=== PATIENT | male | born 1990 | race Caucasian/White ===

== ENCOUNTER 2019-03-13 21:13 | Emergency (ER) | payer BC ==
[2019-03-13] MEDS ORDERED: Pantoprazole IV* 40 MG IV ONE (21:28)
[2019-03-13] MEDS ORDERED: Lidocaine 2% VISCOUS* 15 ML UDC PO ONE (21:29)
[2019-03-13] MEDS ORDERED: Al Hydrox/Mg Hydrox/Simet LIQ* 30 ML UDC PO ONE (21:29)
[2019-03-13] MEDS ORDERED: NS 0.9% 1000 ML** 1,000 ML IV ONE (21:29)
[2019-03-13] MEDS ORDERED: Ondansetron INJ* 2 MG/ML VIAL IV ONE (21:33)
--- NOTE | 2019-03-13 21:33 | ED ---
HPI Chest Pain - HPI Summary HPI Summary: 28-year-old male presents with chest pain for the past week. He states he gets this pain when he eats. He states that is a sharp pain in the center of his chest. He denies any shortness of breath. food and water makes the pain worst. has been taking pepcid and omeprazole with no relief. He admits to nausea but no vomiting. No blood in his stool or dark tarry stool. Has history diabetes. Has no family history of cardiac disease. Denies any headaches or dizziness. Denies any cough. has a history of hiatal hernia. - History of Current Complaint Chief Complaint: EDChestWallPain Time Seen by Provider: 03/13/19 21:22 Pain Intensity: 8 - Allergy/Home Medications Allergies/Adverse Reactions: Allergies Allergy/AdvReac Type Severity Reaction Status Date / Time acetaminophen [From Vicodin] Allergy Severe Anaphylatic Verified 02/28/19 13:26 Shock hydrocodone [From Vicodin] Allergy Severe Anaphylatic Verified 02/28/19 13:26 Shock hydromorphone [From Dilaudid] Allergy Severe Anaphylatic Verified 02/28/19 13:17 Shock ketorolac [From Toradol] Allergy Severe Anaphylatic Verified 02/28/19 13:17 Shock Penicillins Allergy Severe Anaphylatic Verified 02/28/19 13:16 Shock ziprasidone [From Geodon] Allergy Severe Anaphylatic Verified 02/28/19 13:28 Shock PMH/Surg Hx/FS Hx/Imm Hx Endocrine/Hematology History: Reports: Hx Diabetes Cardiovascular History: Denies: Hx Hypertension History: Denies: Hx Renal Disease - Surgical History Surgery Procedure, Year, and Place: several ear surgeries. lumbar laminectomy Infectious Disease History: No Infectious Disease History: Denies: Traveled Outside the [place] in Last 30 Days - Family History Known Family History: Negative: Cardiac Disease - Social History Alcohol Use: Daily Substance Use Type: Reports: Cocaine Review of Systems Negative: Fever Positive: Chest Pain Negative: Shortness Of Breath, Cough All Other Systems Reviewed And Are Negative: Yes Physical Exam Triage Information Reviewed: Yes Vital Signs On Initial Exam: Initial Vitals Temp Pulse Resp BP Pulse Ox 98.0 F 108 18 134/98 98 03/13/19 21:16 03/13/19 21:16 03/13/19 21:16 03/13/19 21:16 03/13/19 21:16 Vital Signs Reviewed: Yes Appearance: Positive: Well-Appearing Skin: Positive: Warm, Dry Head/Face: Positive: Normal Head/Face Inspection Eyes: Positive: Normal, Conjunctiva Clear ENT: Positive: Pharynx normal Respiratory/Lung Sounds: Positive: Clear to Auscultation, Breath Sounds Present , Other - reproducible chest pain Cardiovascular: Positive: Normal, RRR Abdomen Description: Positive: Nontender, Soft Bowel Sounds: Positive: Present Musculoskeletal: Positive: Normal Neurological: Positive: Normal Psychiatric: Positive: Normal Diagnostics - Vital Signs Vital Signs Temp Pulse Resp BP Pulse Ox 03/13/19 21:16 98.0 F 108 18 134/98 98 - Laboratory Result Diagrams: 03/13/19 21:39 03/13/19 21:39 Lab Statement: Any lab studies that have been ordered have been reviewed, and results considered in the medical decision making process. - Radiology chest Radiology Interpretation Completed By: ED Physician Summary of Radiographic Findings: no active disease - EKG No standard instances Cardiac Rate: NL EKG Rhythm: Sinus Rhythm Summary of EKG Findings: sinus rhythm Re-Evaluation - Re-Evaluation First Eval Re-Evaluation Time: 22:15 Change: Unchanged Comment: gi cocktail did not help Second Eval Re-Evaluation Time: 23:49 Change: Unchanged Comment: states mostly epigastric pain now, feels like stomach is pushin up into chest Third Eval Re-Evaluation Time: 01:23 Comment: discussed results will treat as gastritis Chest Pain Course/Dx - Course Course Of Treatment: 28-year-old male presents with chest pain for the past week. He states he gets this pain when he eats. He states that is a sharp pain in the center of his chest. He denies any shortness of breath. food and water makes the pain worst. has been taking pepcid and omeprazole with no relief. He admits to nausea but no vomiting. No blood in his stool or dark tarry stool. Has history diabetes. Has no family history of cardiac disease. Denies any headaches or dizziness. Denies any cough. On exam has reproducible chest pain in center of chest. Lungs auscultation. Heart regular rhythm. EKG shows sinus rhythm. D-dimer negative. CRP slightly elevated. electrolytes normal. Troponin 0. Gave GI cocktail and Protonix with no improvement. Patient is allergic to most medications beside aspirin. Gave aspirin with no improvement. amylase and lipase normal. suspect has GERD and hiatal hernia contribution to pain. will add on sucralfate and maalox for symptoms. will give referral to GI. patient understand and agrees with plan. - Chest Pain Differential Diagnosis/HQI/PQRI: Angina, Chest Wall, GI Disease, Pulmonary Embolism - Diagnoses Provider Diagnoses: Atypical chest pain, Epigastric pain Discharge - Sign-Out/Discharge Documenting (check all that apply): Patient Departure Patient Received Moderate/Deep Sedation with Procedure: No - Discharge Plan Condition: Good Disposition: HOME Prescriptions: Al Hydrox/Mg Hydrox/Simet LIQ* [Maalox Plus*] 30 ml PO Q6H PRN #1 udc PRN Reason: Dyspepsia Sucralfate TAB* [Carafate*] 1 gm PO BID #56 tab Patient Education Materials: Noncardiac Chest Pain (ED) Referrals: Nikko Drake MD [Medical Doctor] - Additional Instructions: contine omeprazole once a day Take Maalox 30ml every 6 hours for epigastric pain as needed take sucralfate twice a day Avoid acidic foods Stay upright for at least 30 mins after eating Follow up with GI Return to ED if develop any new or worsening symptoms - Billing Disposition and Condition Condition: GOOD Disposition: Home
[2019-03-13 21:46] LABS: ABS Eosinophils 0.1 10^3/ul (0-0.6); ABS Lymphocytes 2.5 10^3/ul (1.0-4.8); ABS Monocytes 0.5 10^3/ul (0-0.8); ABS Neutrophils 5.3 10^3/ul (1.5-7.7); Eosinophil % 0.8 %; Hematocrit 45 % (42-52); Hemoglobin 15.8 g/dL (14.0-18.0); Lymphocyte % 29.6 %; Mean Corpuscular HGB Conc 35 g/dL (31-36); Mean Corpuscular Hemoglobin 30 pg (27-31); Mean Corpuscular Volume 86 fL (80-94); Nucleated Red Blood Cells % 0.3; Platelet Count 193 10^3/uL (150-450); Red Blood Count 5.18 10^6 /uL (4.18-5.48); Red Cell Distribution Width 13 % (10-15); White Blood Count 8.4 10^3/uL (3.5-10.8)
[2019-03-13 22:02] LABS: ALT 19 U/L (7-52); AST 16 U/L (13-39); Albumin 4.4 g/dL (3.2-5.2); Albumin/Globulin Ratio 1.4 (1-3); Alkaline Phosphatase 75 U/L (34-104); Anion Gap 8 mmol/L (2-11); BUN/Creatinine Ratio 24.4 (8-20); Blood Urea Nitrogen 20 mg/dL (6-24); C Reactive Protein 18.41 mg/L (<8.01); CO2 Carbon Dioxide 26 mmol/L (22-32); Calcium 9.7 mg/dL (8.6-10.3); Chloride 105 mmol/L (101-111); EGFR African American 134.4 (>60); EGFR Non-African American 111.1 (>60); Globulin 3.2 g/dL (2-4); Glucose 107 mg/dL (70-100); Potassium 4.3 mmol/L (3.5-5.0); Sodium 139 mmol/L (135-145); Total Protein 7.6 g/dL (6.4-8.9)
[2019-03-13] MEDS ORDERED: Aspirin EC TAB* 325 MG PO ONE (22:25)
[2019-03-13] MEDS ORDERED: Famotidine IV* 10 MG/ML 2 ML (20 mg) IV SLOW PU ONE (23:48)
[2019-03-14 00:07] LABS: Amylase 36 U/L (29-103)
[2019-03-14 01:52] VITALS: BP 127/68
== END 2019-03-14 01:51 | disposition home or self-care (01) ==
LOC: ED 21:13
DX: R07.89 Other chest pain (principal); R10.13 Epigastric pain; R11.0 Nausea; Z88.6 Allergy status to analgesic agent; Z88.5 Allergy status to narcotic agent; Z88.0 Allergy status to penicillin; Z88.8 Allergy status to other drugs, medicaments and biological substances; E11.9 Type 2 diabetes mellitus without complications
CPT/HCPCS: 36415; 71045; 80053; 82150; 83605; 83690; 83880; 84484; 85025; 85379; 86140; 93005; 96361; 96374; 96375; 99284; A9270-GY; J2405

== ENCOUNTER 2019-03-26 19:09 | Inpatient (IN) | payer BC ==
--- NOTE | 2019-03-26 19:34 | ED ---
Discharge - Discharge Plan Referrals: No Primary Care Phys,NOPCP [Primary Care Provider] - - Attestation Statements Document Initiated by Scribe: Yes Documenting Scribe: Nigel Davis Provider For Whom Scribe is Documenting (Include Credential): Esequiel Cortez MD Scribe Attestation: INigel, scribed for Esequiel Cortez MD on 03/26/19 at 1934.
--- NOTE | 2019-03-26 19:40 | ED ---
Psychiatric Complaint - HPI Summary HPI Summary: A 28 y/o male brought in by [place] ambulance presents to [facility] with a chief complaint of SI with a plan today. The patient's friend recently and the patient reportedly wants to commit suicide by hanging himself. At triage he rated his pain as a 0/10 in severity. The patient says that he sees Karla Villa NP, while at [facility] rehab. He says that he is 7 weeks sober from EtOH and cocaine. He reports a Hx of DM and says that he takes Metformin and that his blood glucose has been "out of control". He had his blood drawn his first week at [facility], but is unsure whether he had an A1C. - History Of Current Complaint Chief Complaint: EDSuicidal Time Seen by Provider: 03/26/19 19:27 Hx Obtained From: Patient, EMS Onset/Duration: Lasting Hours, Still Present Timing: Constant Severity Initially: Mild Severity Currently: Mild Character: Depressed Aggravating Factor(s): Nothing Alleviating Factor(s): Nothing Associated Signs And Symptoms: Positive: Negative Related History: Positive For: Prior Psychiatric Issues Has Suicidal: Reports: Thoughts, With A Plan Has Homicidal: Denies: Thoughts Recent Stressor(s): a friend's - Allergies/Home Medications Allergies/Adverse Reactions: Allergies Allergy/AdvReac Type Severity Reaction Status Date / Time acetaminophen [From Vicodin] Allergy Severe Anaphylatic Verified 03/26/19 19:22 Shock hydrocodone [From Vicodin] Allergy Severe Anaphylatic Verified 03/26/19 19:22 Shock hydromorphone [From Dilaudid] Allergy Severe Anaphylatic Verified 03/26/19 19:22 Shock ketorolac [From Toradol] Allergy Severe Anaphylatic Verified 03/26/19 19:22 Shock Penicillins Allergy Severe Anaphylatic Verified 03/26/19 19:22 Shock ziprasidone [From Geodon] Allergy Severe Anaphylatic Verified 03/26/19 19:22 Shock Home Medications: Home Medications Acamprosate Calcium [Acamprosate Calcium Dr] 2 tab PO TID 03/26/19 [History Confirmed 03/26/19] DULoxetine DR CAP* [Cymbalta CAP*] 30 mg PO BID 03/26/19 [History Confirmed 12/10] Insulin Lispro [Admelog Solostar] 1 ml .SEE ORDER DAILY 03/26/19 [History Confirmed 03/26/19] Metformin HCl 500 mg PO BID 03/26/19 [History Confirmed 03/26/19] Naproxen Sodium [Anaprox DS 550 mg] 275 mg PO BID PRN 03/26/19 [History Confirmed 03/26/19] QUEtiapine TAB* [Seroquel 300 MG TAB*] 300 mg PO BEDTIME 03/26/19 [History Confirmed 03/26/19] Quetiapine Fumarate [Seroquel Xr] 150 mg PO QAM 03/26/19 [History Confirmed 12/10] Ranitidine TAB (NF) [Zantac TAB (NF)] 150 mg PO BID 03/26/19 [History Confirmed 03/26/19] cloNIDine TAB* [Catapres 0.1 MG TAB*] 0.1 mg PO TID 03/26/19 [History Confirmed 03/26/19] glipiZIDE TAB* [Glucotrol TAB*] 5 mg PO BID 03/26/19 [History Confirmed 03/26/19 ] PMH/Surg Hx/FS Hx/Imm Hx Endocrine/Hematology History: Reports: Hx Diabetes Cardiovascular History: Denies: Hx Hypertension History: Denies: Hx Renal Disease - Surgical History Surgery Procedure, Year, and Place: several ear surgeries. lumbar laminectomy Infectious Disease History: No Infectious Disease History: Denies: Traveled Outside the [place] in Last 30 Days - Family History Known Family History: Negative: Cardiac Disease - Social History Alcohol Use: Daily Substance Use Type: Reports: Cocaine Smoking Status (MU): Never Smoked Tobacco Review of Systems Negative: Fever Positive: Other - positive: SI with a plan All Other Systems Reviewed And Are Negative: Yes Physical Exam - Summary Physical Exam Summary: Appearance: Well-appearing, Well-nourished, lying in bed comfortable Skin: Warm, dry, no obvious rash Eyes: sclera anicteric, no conjunctival pallor ENT: mucous membranes moist Neck: deferred Respiratory: No signs of respiratory distress Cardiovascular: Appears well perfused, pulses are nml Abdomen: deferred Musculoskeletal: Moving all 4 extremities without obvious discomfort Neurological: Awake and alert, mentation is normal, speech is fluent and appropriate Psychiatric: affect is normal, does not appear anxious or depressed Triage Information Reviewed: Yes Vital Signs On Initial Exam: Initial Vitals Temp Pulse Resp BP Pulse Ox 98.3 F 116 20 142/90 97 03/26/19 19:10 03/26/19 19:10 03/26/19 19:10 03/26/19 19:10 03/26/19 19:10 Vital Signs Reviewed: Yes Diagnostics - Vital Signs Vital Signs Temp Pulse Resp BP Pulse Ox 03/26/19 19:10 98.3 F 116 20 142/90 97 - Laboratory Result Diagrams: 03/26/19 19:33 03/26/19 19:36 Lab Statement: Any lab studies that have been ordered have been reviewed, and results considered in the medical decision making process. Course/Dx - Course Course Of Treatment: A 28 y/o male brought in by [place] ambulance presents to [facility] with a chief complaint of SI with a plan today. The patient's friend recently and the patient reportedly wants to commit suicide by hanging himself. The physical exam was unremarkable. Bloodwork, chemistries, urines and toxicology obtained and the patient has been cleared for [facility]. Per mental health prosthetics assistant, Dr. Coyle has decided that the patient will be a voluntary admission. Dx: schizoaffective - Differential Dx/Clinical Impression Provider Diagnosis: Schizoaffective disorder, unspecified condition, Suicidal ideation - Physician Notifications Discussed Care Of Patient With: Marcus Coyle Time Discussed With Above Provider: 20:27 Instructed by Provider To: Other - per mental health prosthetics assistant, Dr. Coyle has decided that the patient will be a voluntary admission. Dx: schizoaffective Discharge - Sign-Out/Discharge Documenting (check all that apply): Patient Departure - admit Patient Received Moderate/Deep Sedation with Procedure: No - Discharge Plan Condition: Stable Disposition: [facility]YCHIATRIC FAC[place] [place] Billing Disposition and Condition Condition: STABLE Disposition: Psychiatric Facility [facility] - Attestation Statements Document Initiated by Scribe: Yes Documenting Scribe: Nigel Davis Provider For Whom Bethany is Documenting (Include Credential): Esequiel Cortez MD Scribe Attestation: Nigel Caldera, scribed for Esequiel Cortez MD on 03/27/19 at 0151. Scribe Documentation Reviewed: Yes Provider Attestation: The documentation as recorded by the Nigel walsh accurately reflects the service I personally performed and the decisions made by me, Esequiel Cortez MD Status of Scribe Document: Viewed
[2019-03-26 19:44] LABS: ABS Eosinophils 0.1 10^3/ul (0-0.6); ABS Monocytes 0.5 10^3/ul (0-0.8); ABS Neutrophils 6.1 10^3/ul (1.5-7.7); Eosinophil % 0.9 %; Hematocrit 44 % (42-52); Hemoglobin 15.2 g/dL (14.0-18.0); Lymphocyte % 23.4 %; Mean Corpuscular HGB Conc 35 g/dL (31-36); Mean Corpuscular Hemoglobin 30 pg (27-31); Mean Corpuscular Volume 86 fL (80-94); Mean Platelet Volume 6.9 fL (7.4-10.4); Nucleated Red Blood Cells % 0.1; Platelet Count 183 10^3/uL (150-450); Red Blood Count 5.07 10^6 /uL (4.18-5.48); Red Cell Distribution Width 13 % (10-15); White Blood Count 8.8 10^3/uL (3.5-10.8)
[2019-03-26 20:03] LABS: Urine Appearance Clear; Urine Bilirubin Negative (Negative); Urine Blood Negative (Negative); Urine Color Yellow; Urine Glucose Negative (Negative); Urine Ketones Negative (Negative); Urine Nitrite Negative (Negative); Urine Protein Negative (Negative); Urine Specific Gravity 1.016 (1.010-1.030); Urine Urobilinogen Negative (Negative)
[2019-03-26 20:05] LABS: ALT 20 U/L (7-52); AST 16 U/L (13-39); Albumin 4.2 g/dL (3.2-5.2); Albumin/Globulin Ratio 1.4 (1-3); Alkaline Phosphatase 67 U/L (34-104); Anion Gap 8 mmol/L (2-11); BUN/Creatinine Ratio 18.4 (8-20); Blood Urea Nitrogen 14 mg/dL (6-24); CO2 Carbon Dioxide 27 mmol/L (22-32); Calcium 9.4 mg/dL (8.6-10.3); Chloride 104 mmol/L (101-111); EGFR African American 146.7 (>60); EGFR Non-African American 121.3 (>60); Glucose 110 mg/dL (70-100); Sodium 139 mmol/L (135-145); Total Protein 7.2 g/dL (6.4-8.9)
[2019-03-26 20:09] LABS: Urine Benzodiazepine Screen None Detected (None Detect); Urine Opiates Screen None Detected (None Detect)
[2019-03-26 20:46] LABS: Acetaminophen < 15 mcg/mL; Alcohol < 10 mg/dL (<10); Salicylate < 2.50 mg/dL (<30)
[2019-03-26 20:49] LABS: TSH (Thyroid Stimulating Horm) 6.01 mcIU/mL (0.34-5.60)
[2019-03-26] MEDS ORDERED: Nicotine* 2MG (FRUIT FLAVOR) GUM PO PRN (22:07)
[2019-03-26] MEDS ORDERED: Dextrose 50% Syringe 50 ML* 25 GM/50 ML SYRINGE IV PUSH PRN (22:20)
[2019-03-27] MEDS: Insulin LISPRO* 1 UNITS UNIT SUBCUT SCH ×4 (07:50→20:57)
[2019-03-27 08:35] LABS: HDL Cholesterol 39.1 mg/dL
[2019-03-27] MEDS: ACAMPROSATE 333 MG PO SCH ×3 (09:08→20:56)
[2019-03-27] MEDS: DULoxetine DR CAP* 20 MG CAP.DR PO SCH ×2 (09:10→20:55)
[2019-03-27] MEDS: QUEtiapine XR TAB* 50 MG PO SCH (09:10)
[2019-03-27] MEDS: Multivitamins/Minerals TAB PO SCH (09:11)
[2019-03-27] MEDS: Famotidine TAB* 20 MG PO SCH ×2 (09:11→20:55)
[2019-03-27] MEDS: cloNIDine TAB* 0.1 MG PO SCH ×3 (09:12→20:56)
[2019-03-27] MEDS: glipiZIDE TAB* 5 MG PO SCH ×2 (09:14→20:56)
[2019-03-27] MEDS: metFORMIN* 500 MG TAB PO SCH ×2 (09:14→20:56)
[2019-03-27] MEDS: Naproxen TAB* 250 MG PO PRN ×2 (13:46→17:38)
--- NOTE | 2019-03-27 16:28 | HP ---
HISTORY AND PHYSICAL: DATE OF ADMISSION: 03/26/19 IDENTIFYING DATA: Fredrick is a 28-year-old never , both physically and mentally disabled, male with an extensive history of substance dependence and at least 3 prior psychiatric hospitalizations, who was brought into [place] [facility] by ambulance from [facility] due to having command auditory hallucinations, suicidal ideations as well as a plan to hang himself. CHIEF COMPLAINT: "I thought about going into the [place] and hanging myself." HISTORY OF PRESENT ILLNESS: Fredrick has been in inpatient substance abuse rehab at [facility] since the end of January and was doing fine until yesterday when his mother told him that one of his best friends, a ute, who committed suicide by blowing his brain off. He has been experiencing some command auditory hallucinations for the last week or so, which got very intense after hearing this news. Then, he started having plans to execute the suicide. He reports that there are plenty of reasons and room for committing suicide in and around [facility] and he felt really unsafe. At that point, he spoke with one of the staff members, who sent him here for further evaluation. Other than experiencing auditory hallucinations, he denies any delusions or paranoia, homicidal ideations, or visual hallucinations. He was thinking about going home to his mom's after discharge from [facility], but at this point, he does not feel safe to go home because he does not believe he can keep himself safe. PAST PSYCHIATRIC HISTORY: As mentioned earlier, Fredrick had 3 prior psychiatric hospitalizations in [facility] in [place] as well as [facility] in [place]. He was previously diagnosed with schizoaffective disorder and was being treated with both antipsychotics as well as mood stabilizers. SUBSTANCE ABUSE HISTORY: Fredrick reports of an extensive substance abuse history, which included excessive drinking, doing cocaine, and smoking pot. He never used IV drugs. All he did was snorting or smoking. His last use of any drug or alcohol was January this year. PAST MEDICAL HISTORY: Remarkable for obesity, insulin-dependent diabetes mellitus, and swallowing difficulty. He reports of losing about 200 pounds since he was admitted to [facility] because of difficulty swallowing any solid food. MEDICATIONS: His home medications include: 1. Acamprosate calcium. 2. Duloxetine 30 mg p.o. b.i.d. 3. Metformin hydrochloride 500 mg p.o. b.i.d. 4. Naproxen sodium 275 mg p.o. b.i.d. 5. Quetiapine 150 mg in the morning and 300 mg at bedtime. 6. Ranitidine 150 mg p.o. b.i.d. 7. Clonidine 0.1 mg p.o. t.i.d. 8. Glipizide 5 mg p.o. b.i.d. ALLERGIES: Include ACETAMINOPHEN which causes anaphylactic shock, HYDROCODONE also causes anaphylactic shock, KETOROLAC (TORADOL) also causes anaphylactic shock, HYDROMORPHONE (DILAUDID) causes anaphylactic shock, PENICILLIN - same, ZIPRASIDONE - same. FAMILY HISTORY: Fredrick reports that his mother suffers from bipolar disorder. Both his younger sisters also suffer from some form of mental illness and they are both substance abusers. PERSONAL AND SOCIAL HISTORY: Fredrick is both physically and mentally disabled and on social security benefits. After finishing high school, he did some college; however, quit before he obtained any degree. He has never worked and is totally dependent on social security benefits. He lives with his mother in [place] along with his 2 sisters. Never been , is not in any significant relationships. He is not sexually active. Does not have any children. He also denies any legal problems. PHYSICAL EXAMINATION GENERAL: He does not appear to be in any physical distress. He is obese, appropriately and neatly dressed and groomed. VITAL SIGNS: His vitals show blood pressure of 142/90, pulse 116, pulse ox 97% , temperature 98.3, respirations 20. HEENT: His head appears to be atraumatic, normocephalic. His ears appear little bit upright indicative of alcohol syndrome, but the head size is within normal limits. Eyes: PERRLA. EOMI x2. Anicteric sclerae. Conjunctivae normal. Ear canals clean with intact eardrums. NECK: Supple. Difficult to move, but is doable. Very short and thick neck. Midline trachea. No adenopathy or thyromegaly appreciated. CHEST: Equal air entry bilaterally. No wheezing or crackles. HEART: Sounds are S1 and S2 only. No murmurs or gallops. ABDOMEN: Difficult to palpate, but nontender, soft. Bowel sounds positive in all quadrants. MUSCULOSKELETAL: Within normal limits. NEUROLOGICAL: Alert and awake. Cranial nerves II through XII grossly intact. No sensory deficits. Pulses in 4 extremities are palpable. LABORATORY DATA: Labs were all unremarkable, which include CBC with differential, urinalysis, urine drug screen, comprehensive metabolic profile. His WBC count is 8.8, hemoglobin 15.2, hematocrit 44, platelet count 183. His sodium level is 139, potassium 4, chloride 104, carbon dioxide 27, BUN 14, creatinine 76. Rest of the reports look within normal limits. MENTAL STATUS EXAMINATION: Fredrick is alert and oriented to time, place, and person. Makes good eye contact. Pleasant and cooperative with the assessments. His voice is normal in all spheres. Intelligence appears to be average as evidenced by his vocabulary, educational background, and fund of knowledge. Memory functions are intact in all spheres. Reports of hearing command auditory hallucinations of his father who is in [place] and the voices are telling him he is no good and should kill himself. Denies any visual hallucinations. He is not sure whether he is going to act on his instinct to kill himself or listen to the command voices, but contracts for safety at this time. His insight and judgment appear to be fair to good. He denies any delusions or paranoia at this time. SUMMARY: This 28-year-old male with long history of polysubstance use disorder and previous diagnosis of schizoaffective disorder who has been hearing voices of his father who is telling him to kill himself, which intensified after he heard one of his buddies committed suicide recently by blowing his brains out. He thought about hanging himself in the [place]; however, instead he told somebody at [facility] who sent him here for further evaluation and treatments. DIAGNOSTIC IMPRESSION: MENTAL HEALTH DIAGNOSES: 1. Psychosis, NOS. 2. Rule out schizoaffective disorder. 3. Rule out schizophrenia. PHYSICAL HEALTH DIAGNOSES: 1. Insulin-dependent diabetes mellitus type 2. 2. Obesity. TREATMENT RECOMMENDATIONS: Fredrick will remain hospitalized on behavioral science unit for his safety, diagnostic clarification, and stabilization of acute symptoms. His code status will remain full. Supportive milieu, group and individual therapy will be initiated. My plan is to continue all his outpatient medications; however, I will start him on risperidone 1 mg at bedtime with an intention to switch him from Seroquel to risperidone as Seroquel does not appear to help. Moreover with his diabetes and weight gain, risperidone will be a better choice for him at least for now. However, his assigned psychiatrist on the unit may decide otherwise. [id number]/[facility] #: [id number] MTDD
[2019-03-27] MEDS ORDERED: QUEtiapine TAB* 300 MG PO SCH (21:00)
[2019-03-27] MEDS ORDERED: risperiDONE-M * 1 MG TAB.ORADIS PO SCH (21:00)
[2019-03-28] MEDS: Insulin LISPRO* 1 UNITS UNIT SUBCUT SCH ×3 (07:38→16:40)
[2019-03-28] MEDS: QUEtiapine XR TAB* 50 MG PO SCH ×2 (08:21→20:14)
[2019-03-28] MEDS: glipiZIDE TAB* 5 MG PO SCH (08:21)
[2019-03-28] MEDS: cloNIDine TAB* 0.1 MG PO SCH ×3 (08:21→20:14)
[2019-03-28] MEDS: metFORMIN* 500 MG TAB PO SCH (08:21)
[2019-03-28] MEDS: Multivitamins/Minerals TAB PO SCH (08:21)
[2019-03-28] MEDS: DULoxetine DR CAP* 20 MG CAP.DR PO SCH ×2 (08:21→20:14)
[2019-03-28] MEDS: Famotidine TAB* 20 MG PO SCH ×2 (08:21→20:13)
[2019-03-28] MEDS: ACAMPROSATE 333 MG PO SCH ×3 (08:22→20:14)
[2019-03-28] MEDS: Naproxen TAB* 250 MG PO PRN (08:24)
--- NOTE | 2019-03-28 10:34 | PN ---
Subjective - Subjective Date of Service: 03/28/19 Service Type: 83543 Hosp care 35 min high complexity Subjective: Nursing Report: Patient was visible on unit, no chemical restraints, poor sleep, no behavioral disturbances. CC: " It hurts when I swallow Patient was seen and evaluated in the common room. The patient reported his main concerns are hearing voices and pain when swallowing. He reported 200lbs weight loss and has trouble swallowing foods. He continues to hear voices which cause him to be distressed. Patient reported being seen today by speech pathologist. He mentioned that he did not sleep well overnight. He requested to change risperdal because he attributed it to getting poor sleep. Objective - General Observations Appears Stated Age: Yes Stature: Overweight Posture: Slumped Eye Contact: Average Behavior/Activity: WNL - Interaction Observations Attitude Towards Examiner: Cooperative Stated Mood: Dysphoric Affect: Blunted Speech Pattern/Tone: Quiet Volume Thought Process: Coherent Perception: WNL Thought Content: Self-Deprecatory Thought Process: Lethality: Passive Wish, Suicidal Planning Hallucination Type: None, Auditory Delusion Type: Persecution - Cognitive Function Orientation: A&O x 4 Level of Consciousness: Awake - Medication Compliance Cooperative with Inpatient Medication Regimen: Yes - Group Participation Participates in Group Activities: Partial Assessment - Assessment Merits Inpatient Hospitalization: For Immediate Safety Clinical Impression: 28 year old male with a history of schizoaffective disorder [place] [facility] [place] Plan - Plan Treatment Plan: Name: DHARMESH GOLDBERG Birthdate: 1990 [id number] Plan #Admit to [facility], Q15 minute observation. # The patient requires psychiatric inpatient admission at this time to assure safety, receive treatment and work toward stabilization. # Obtain collateral information once release is signed. # Collaboration with Him Coder # Dr. Byrne from the medicine team consulted to address underlying medical issues including Dysphagia , 200lbs weight loss, uncontrolled diabetes, and hypothyroidism. #Start abilify 20mg daily and seroquel 150mg qhs and d/c seroquel 300mg and risperdal. Patient reported remission with Abilify in the past however due to prior authorization issues discontinued. # Nutrition Consult #Swallow study #Goals before discharge include: To eliminate/ reduce suicidal ideation #Monitor glucose levels and vital signs The risks, benefits, and alternative treatment options were discussed as well as of the risks of refusing treatment. After this discussion and an acknowledgement of this understanding was made. A risk/ benefit assessment of treatment was considered and discussed with the patient. When comparing the risks of treatment with the dangers of not receiving treatment, the benefits of treatment outweigh the treatment risks at this time. Risks of allergy, suicidal ideation, behavioral changes, dystonia, rashes, electrolyte imbalances, movement disorders, cardiac conduction changes, serotonin syndrome, metabolic risks, NMS were among some of the risks discussed. Laboratory Results WBC 8.8 10^3/uL (3.5-10.8) 03/26/19 19:33 RBC 5.07 10^6 /uL (4.18-5.48) 03/26/19 19:33 Hgb 15.2 g/dL (14.0-18.0) 03/26/19 19: Hct 44 % (42-52) 03/26/19 19: MCV 86 fL (80-94) 03/26/19 19: MCH 30 pg (27-31) 03/26/19 19: MCHC 35 g/dL (31-36) 03/26/19 19:33 RDW 13 % (10-15) 03/26/19 19:33 Plt Count 183 10^3/uL (150-450) 03/26/19 19: MPV 6.9 fL (7.4-10.4) L 03/26/19 19:33 Neut % (Auto) 69.8 % 03/26/19 19:33 Lymph % (Auto) 23.4 % 03/26/19 19:33 [place] % (Auto) 5.4 % 03/26/19 19:33 Eos % (Auto) 0.9 % 03/26/19 19:33 Baso % (Auto) 0.5 % 03/26/19 19:33 Absolute Neuts (auto) 6.1 10^3/ul (1.5-7.7) 03/26/19 19: Absolute Lymphs (auto) 2.0 10^3/ul (1.0-4.8) 03/26/19 19:33 Absolute Monos (auto) 0.5 10^3/ul (0-0.8) 03/26/19 19:33 Absolute Eos (auto) 0.1 10^3/ul (0-0.6) 03/26/19 19:33 Absolute Basos (auto) 0.0 10^3/ul (0-0.2) 03/26/19 19:33 Absolute Nucleated RBC 0.0 10^3/ul 03/26/19 19:33 Nucleated RBC % 0.1 03/26/19 19:33 Sodium 139 mmol/L (135-145) 03/26/19 19:36 Potassium 4.0 mmol/L (3.5-5.0) 03/26/19 19:36 Chloride 104 mmol/L (101-111) 03/26/19 19:36 Carbon Dioxide 27 mmol/L (22-32) 03/26/19 19:36 Anion Gap 8 mmol/L (2-11) 03/26/19 19:36 BUN 14 mg/dL (6-24) 03/26/19 19:36 Creatinine 0.76 mg/dL (0.67-1.17) 03/26/19 19:36 Est GFR ( Amer) 146.7 (>60) 03/26/19 19:36 Est GFR (Non-Af Amer) 121.3 (>60) 03/26/19 19:36 BUN/Creatinine Ratio 18.4 (8-20) 03/26/19 19:36 Glucose 110 mg/dL (70-100) H 03/26/19 19:36 POC Glucose (mg/dL) 84 mg/dL (70-100) 03/28/19 13:35 Hemoglobin A1c 5.9 % (4.0-5.6) H 03/26/19 19:36 Calcium 9.4 mg/dL (8.6-10.3) 03/26/19 19:36 Total Bilirubin 0.50 mg/dL (0.2-1.0) 03/26/19 19:36 AST 16 U/L (13-39) 03/26/19 19:36 ALT 20 U/L (7-52) 03/26/19 19:36 Alkaline Phosphatase 67 U/L (34-104) 03/26/19 19:36 Total Protein 7.2 g/dL (6.4-8.9) 03/26/19 19:36 Albumin 4.2 g/dL (3.2-5.2) 03/26/19 19:36 Globulin 3.0 g/dL (2-4) 03/26/19 19:36 Albumin/Globulin Ratio 1.4 (1-3) 03/26/19 19:36 Triglycerides 62 mg/dL 03/27/19 07:51 Cholesterol 142 mg/dL 03/27/19 07:51 LDL Cholesterol 91 mg/dL 03/27/19 07:51 HDL Cholesterol 39.1 mg/dL 03/27/19 07:51 TSH 6.01 mcIU/mL (0.34-5.60) H 03/26/19 19:36 Thyroxine (T4) 1.54 mcg/dL (6.09-12.23) L 03/26/19 19:36 Urine Color Yellow 03/26/19 19:25 Urine Appearance Clear 03/26/19 19:25 Urine pH 6.0 (5-9) 03/26/19 19:25 Ur Specific [place] 1.016 (1.010-1.030) 03/26/19 19:25 Urine Protein Negative (Negative) 03/26/19 19:25 Urine Ketones Negative (Negative) 03/26/19 19:25 Urine Blood Negative (Negative) 03/26/19 19:25 Urine Nitrate Negative (Negative) 03/26/19 19:25 Urine Bilirubin Negative (Negative) 03/26/19 19:25 Urine Urobilinogen Negative (Negative) 03/26/19 19:25 Ur Leukocyte Esterase Negative (Negative) 03/26/19 19:25 Urine Glucose Negative (Negative) 03/26/19 19:25 Salicylates < 2.50 mg/dL (<30) 03/26/19 19:36 Urine Opiates Screen None detected (None Detect) 03/26/19 19:25 Acetaminophen < 15 mcg/mL 03/26/19 19:36 Ur Barbiturates Screen None detected (None Detect) 03/26/19 19:25 Ur Phencyclidine Scrn None detected (None Detect) 03/26/19 19:25 Ur Amphetamines Screen None detected (None Detect) 03/26/19 19:25 U Benzodiazepines Scrn None detected (None Detect) 03/26/19 19:25 Urine Cocaine Screen None detected (None Detect) 03/26/19 19:25 U Cannabinoids Screen None detected (None Detect) 03/26/19 19:25 Serum Alcohol < 10 mg/dL (<10) 03/26/19 19:36 Vital Signs Temp Pulse Resp BP Pulse Ox 96.7 F 81 16 118/70 100 03/28/19 08:00 03/28/19 08:00 03/28/19 08:00 03/28/19 08:00 03/28/19 08:00 Continued Medication Management: Continue Outpt Medication Medications: Current Medications Acamprosate (Campral (Nf)) 666 mg PO TID [facility] Last Admin: 03/28/19 08:22 Dose: 666 mg Al Hydrox/Mg Hydrox/Simethicone (Maalox Plus*) 30 ml PO Q4H PRN PRN Reason: INDIGESTION Clonidine HCl (Catapres Tab*) 0.1 mg PO TID [facility] Last Admin: 03/28/19 08:21 Dose: 0.1 mg Dextrose (D50w Syringe 50 Ml*) 12.5 gm IV PUSH .FOR FS < 60 - SS PRN PRN Reason: FS < 60 Duloxetine HCl (Cymbalta Cap*) 20 mg PO BID [facility] Last Admin: 03/28/19 08:21 Dose: 20 mg Famotidine (Pepcid Tab*) 20 mg PO BID [facility] Last Admin: 03/28/19 08:21 Dose: 20 mg Glipizide (Glucotrol Tab*) 5 mg PO BID [facility] Last Admin: 03/28/19 08:21 Dose: 5 mg Insulin Human Lispro (Humalog*) 0 units SUBCUT [facility]; Protocol Last Admin: 03/28/19 07:38 Dose: Not Given Metformin HCl (Glucophage*) 500 mg PO BID [facility] Last Admin: 03/28/19 08:21 Dose: 500 mg Multivitamins/Minerals (Theragran/Minerals Tab*) 1 tab PO DAILY [facility] Last Admin: 03/28/19 08:21 Dose: 1 tab Naproxen (Naprosyn Tab*) 250 mg PO BID PRN PRN Reason: PAIN Last Admin: 03/28/19 08:24 Dose: 250 mg Nicotine Polacrilex (Nicotine Gum*) 2 mg PO Q2H PRN PRN Reason: CRAVING Quetiapine Fumarate (Seroquel Tab*) 300 mg PO BEDTIME [facility] Last Admin: 03/27/19 20:55 Dose: 300 mg Quetiapine Fumarate (Seroquel Xr Tab*) 150 mg PO DAILY [facility] Last Admin: 03/28/19 08:21 Dose: 150 mg Risperidone (Risperdal-M Tab *) 1 mg PO BEDTIME [facility]; Protocol Last Admin: 03/27/19 20:56 Dose: 1 mg - Discharge Plan Discharge Plan: Inpatient Hospitalization
[2019-03-28 13:00] LABS: T4, Total 1.54 mcg/dL (6.09-12.23)
--- NOTE | 2019-03-28 18:55 | CONS ---
CONSULTATION REPORT: DATE OF CONSULT: 03/28/19 TIME OF CONSULTATION: 4:30 p.m. REQUESTING SERVICE: Psychiatry. REASON FOR ADMISSION: Suicidal ideation and psychosis. CHIEF COMPLAINT: "I can't eat solid foods." HISTORY OF PRESENT ILLNESS: This is a 28-year-old man with history of polysubstance abuse and diabetes, who presented to the emergency department on 03/27/19 with suicidal ideation and is currently admitted to the [facility]. We were asked to see Fredrick today for several complaints. 1. Dysphagia/odynophagia. He says that starting 6 weeks ago, he was unable to swallow solid foods. He was transitioned to only Jell-O and yogurt at [facility] and now he is only able to eat Ensure. He describes pain when food goes down his esophagus and explains that it "sits in my chest" and freeman all the way down. He says the solid bolus sits in his chest for approximately 1 hour. He has associated belching and reflux and he claims to have lost 200 pounds since last November. He also complains of night sweats "constantly." He complaints of abdominal pain "constantly." He complaints of diarrhea "constantly." 2. An elevated TSH with a low T4. Regarding Fredrick's thyroid symptoms, he complaints of diarrhea, weight loss, sweats, and insomnia. 3. Diabetes. Fredrick claims that he had a history of an A1c of 14. On this admission, it is 5.9. He uses an insulin sliding scale at home and he is on that here as well. He is also on glipizide at home and he is on metformin here. He had an episode of hypoglycemia today at 12 p.m. His blood sugar was noted to be 52. He was symptomatic at that time with lightheadedness and sweatiness. PAST MEDICAL HISTORY: Type 2 diabetes; polysubstance abuse including cocaine and alcohol, he has not used since 02/05/19; and history of lumbar disk herniation. PAST SURGICAL HISTORY: Lumbar laminectomy. FAMILY HISTORY: His mom has diabetes. SOCIAL HISTORY: He currently lives at [facility]. He has been sober since 02/05/19. He chews tobacco. REVIEW OF SYSTEMS: As per the HPI. PHYSICAL EXAM: Temperature 96.7, heart rate 81, respiratory rate 16, pulse ox 100% on room air, blood pressure 118/70. General: Alert, overweight young man , in no acute distress. HEENT: His pupils are 4 mm and reactive to light bilaterally. Extraocular muscles are intact. Oral mucosa is moist. Neck: No JVP. No adenopathy in the cervical or supraclavicular regions. His thyroid is nonpalpable. Chest: Regular rate and rhythm with no murmurs. His lungs are clear bilaterally. Abdomen: Obese, soft. Tender diffusely to palpation. He has no guarding, rebound, or rigidity and he has a negative [place] sign. No CVA tenderness. Extremities: No edema, rashes, or ulcers. Neurologic: He is alert, oriented. Gait is normal. DIAGNOSTIC STUDIES/LAB DATA: Hemoglobin A1c 5.9, TSH 6.01, T4 of 1.54. Sodium 139, potassium 4.0, chloride 104, bicarb 27, BUN 14, creatinine 0.76, glucose 110. White blood cells 8.8, hemoglobin 15.2, platelets 183. Urinalysis is unremarkable and the urine tox is unremarkable. ASSESSMENT AND PLAN: This is a 28-year-old man with history of diabetes and substance abuse, who presented to the emergency department with suicidal ideation and is admitted to the [facility]. Medicine was consulted for elevated TSH, involuntary weight loss, difficulty swallowing and diabetes management. 1. Hypoglycemia. His A1c is 5.9 and while he believes that he has had blood sugars of over 300 recently at [facility], that hemoglobin A1c of 5.9 correlates to an average blood sugar of 123, so I am not convinced that he has had uncontrolled blood sugars. Given his episode of hypoglycemia, I am discontinuing his sliding scale and his metformin and adding a.c. and h.s. fingersticks and we will continue to follow his blood sugars to see if he needs any diabetes medications. 2. Involuntary weight loss. I am requesting records from his primary care physician at [facility], Dr. Radha Mandujano to verify this. We have no prior records for comparison. Given his reported history of dysphagia and diarrhea, this is concerning for a malabsorptive syndrome or an upper GI process; however, I would like to verify this weight loss before moving forward. He has no anemia or electrolyte imbalances to suggest a malabsorption syndrome like celiac disease. 3. Elevated TSH. He has a very mildly elevated TSH and a very mildly depressed T4. Since his symptoms do not correspond to hypothyroidism, I would not treat this. This can be followed up with repeat labs in 4-6 weeks as an outpatient. 4. Dysphagia. Again in the setting of weight loss, this is concerning for an obstructive process. He was evaluated by Speech Therapy today, who recommended an upper GI series and an esophagus XA. Apparently, Fredrick has had an upper endoscopy in 2018 and we should request these records as well. I have entered this request. The esophageal study that I have ordered will also evaluate for achalasia, which should also be considered on the differential. Thank you for allowing us to participate in the care of this patient. We will continue to follow along and obtain old records and evaluate this for the studies that we have ordered. [id number]/[facility] #: [id number] ESTEFANY
[2019-03-29] MEDS: Naproxen TAB* 250 MG PO PRN (04:14)
[2019-03-29] MEDS: Multivitamins/Minerals TAB PO SCH (08:12)
[2019-03-29] MEDS: ARIPiprazole TAB* 20 MG PO SCH (08:12)
[2019-03-29] MEDS: Famotidine TAB* 20 MG PO SCH ×2 (08:12→20:24)
[2019-03-29] MEDS: DULoxetine DR CAP* 20 MG CAP.DR PO SCH ×2 (08:12→20:24)
[2019-03-29] MEDS: cloNIDine TAB* 0.1 MG PO SCH ×3 (08:12→20:24)
[2019-03-29] MEDS: ACAMPROSATE 333 MG PO SCH ×3 (08:13→20:24)
--- NOTE | 2019-03-29 11:43 | PN ---
Hospitalist Progress Note Date of Service: 03/29/19 Medicine follow up: Records from [facility] have not arrived yet, but have been requested. Plan for barium swallow on Sunday and we will re-evaluate him after records arrive and the esophageal imaging is complete. Blood sugars are better off of insulin and metformin. Discussed plan with nursing.
--- NOTE | 2019-03-29 18:31 | PN ---
Subjective - Subjective Date of Service: 03/29/19 Service Type: 99113 Hosp care 25 min moderate complexity Subjective: No change of mental status for this 28 y/o male who continues to hear voices and still having difficulty swallowing food. Denies any active SI or HI. Says he feels safe here and looking forwards to get well on different meds. Objective - General Observations Appearance: Unkempt Appears Stated Age: No - Looks older then stated age 28. Stature: Overweight Posture: WNL Eye Contact: Avoidant Behavior/Activity: Slowed - Interaction Observations Attitude Towards Examiner: Cooperative Stated Mood: Dysphoric Affect: Blunted Speech Pattern/Tone: Clear Thought Process: Coherent, Goal Directed Perception: WNL Thought Content: WNL Thought Process: Lethality: Passive Wish Hallucination Type: Auditory Delusion Type: None - Cognitive Function Orientation: A&O x 4 Level of Consciousness: Awake, Alert, Appropriate Cognition: WNL Estimated Intelligence: Borderline Range Insight: WNL Judgment Within Normal Limits: No Ability to Make Reasonable Decisions: Mildly Impaired - Medication Compliance Cooperative with Inpatient Medication Regimen: Yes - Group Participation Participates in Group Activities: Partial Assessment - Assessment Merits Inpatient Hospitalization: For Immediate Safety, For Stabilization, For Ongoing Evaluation, Pending Safe DC Plan Clinical Impression: 28 year old male with a history of schizoaffective disorder presented to [facility] [place] with suicidal ideation Plan - Plan Treatment Plan: Name: DHARMESH GOLDBERG Birthdate: 1990 [id number] Plan #Admit to [facility], Q15 minute observation. # The patient requires psychiatric inpatient admission at this time to assure safety, receive treatment and work toward stabilization. # Obtain collateral information once release is signed. # Collaboration with Area Loss Prevention Manager # Dr. Byrne from the medicine team consulted to address underlying medical issues including Dysphagia , 200lbs weight loss, uncontrolled diabetes, and hypothyroidism. #Start abilify 20mg daily and seroquel 150mg qhs and d/c seroquel 300mg and risperdal. Patient reported remission with Abilify in the past however due to prior authorization issues discontinued. # Nutrition Consult #Swallow study #Goals before discharge include: To eliminate/ reduce suicidal ideation #Monitor glucose levels and vital signs The risks, benefits, and alternative treatment options were discussed as well as of the risks of refusing treatment. After this discussion and an acknowledgement of this understanding was made. A risk/ benefit assessment of treatment was considered and discussed with the patient. When comparing the risks of treatment with the dangers of not receiving treatment, the benefits of treatment outweigh the treatment risks at this time. Risks of allergy, suicidal ideation, behavioral changes, dystonia, rashes, electrolyte imbalances, movement disorders, cardiac conduction changes, serotonin syndrome, metabolic risks, NMS were among some of the risks discussed. Laboratory Results WBC 8.8 10^3/uL (3.5-10.8) 03/26/19 19:33 RBC 5.07 10^6 /uL (4.18-5.48) 03/26/19 19:33 Hgb 15.2 g/dL (14.0-18.0) 03/26/19 19: Hct 44 % (42-52) 03/26/19 19: MCV 86 fL (80-94) 03/26/19 19: MCH 30 pg (27-31) 03/26/19 19: MCHC 35 g/dL (31-36) 03/26/19 19: RDW 13 % (10-15) 03/26/19 19:33 Plt Count 183 10^3/uL (150-450) 03/26/19 19: MPV 6.9 fL (7.4-10.4) L 03/26/19 19: Neut % (Auto) 69.8 % 03/26/19 19: Lymph % (Auto) 23.4 % 03/26/19 19: [place] % (Auto) 5.4 % 03/26/19: Eos % (Auto) 0.9 % 03/26/19: Baso % (Auto) 0.5 % 03/26/19 19:33 Absolute Neuts (auto) 6.1 10^3/ul (1.5-7.7) 03/26/19 19: Absolute Lymphs (auto) 2.0 10^3/ul (1.0-4.8) 03/26/19 19:33 Absolute Monos (auto) 0.5 10^3/ul (0-0.8) 03/26/19 19: Absolute Eos (auto) 0.1 10^3/ul (0-0.6) 03/26/19 19:33 Absolute Basos (auto) 0.0 10^3/ul (0-0.2) 03/26/19 19:33 Absolute Nucleated RBC 0.0 10^3/ul 03/26/19 19:33 Nucleated RBC % 0.1 03/26/19 19:33 Sodium 139 mmol/L (135-145) 03/26/19 19:36 Potassium 4.0 mmol/L (3.5-5.0) 03/26/19 19:36 Chloride 104 mmol/L (101-111) 03/26/19 19:36 Carbon Dioxide 27 mmol/L (22-32) 03/26/19 19:36 Anion Gap 8 mmol/L (2-11) 03/26/19 19:36 BUN 14 mg/dL (6-24) 03/26/19 19:36 Creatinine 0.76 mg/dL (0.67-1.17) 03/26/19 19:36 Est GFR ( Amer) 146.7 (>60) 03/26/19 19:36 Est GFR (Non-Af Amer) 121.3 (>60) 03/26/19 19:36 BUN/Creatinine Ratio 18.4 (8-20) 03/26/19 19:36 Glucose 110 mg/dL (70-100) H 03/26/19 19:36 POC Glucose (mg/dL) 84 mg/dL (70-100) 03/28/19 13:35 Hemoglobin A1c 5.9 % (4.0-5.6) H 03/26/19 19:36 Calcium 9.4 mg/dL (8.6-10.3) 03/26/19 19:36 Total Bilirubin 0.50 mg/dL (0.2-1.0) 03/26/19 19:36 AST 16 U/L (13-39) 03/26/19 19:36 ALT 20 U/L (7-52) 03/26/19 19:36 Alkaline Phosphatase 67 U/L (34-104) 03/26/19 19:36 Total Protein 7.2 g/dL (6.4-8.9) 03/26/19 19:36 Albumin 4.2 g/dL (3.2-5.2) 03/26/19 19:36 Globulin 3.0 g/dL (2-4) 03/26/19 19:36 Albumin/Globulin Ratio 1.4 (1-3) 03/26/19 19:36 Triglycerides 62 mg/dL 03/27/19 07:51 Cholesterol 142 mg/dL 03/27/19 07:51 LDL Cholesterol 91 mg/dL 03/27/19 07:51 HDL Cholesterol 39.1 mg/dL 03/27/19 07:51 TSH 6.01 mcIU/mL (0.34-5.60) H 03/26/19 19:36 Thyroxine (T4) 1.54 mcg/dL (6.09-12.23) L 03/26/19 19:36 Urine Color Yellow 03/26/19 19:25 Urine Appearance Clear 03/26/19 19:25 Urine pH 6.0 (5-9) 03/26/19 19:25 Ur Specific [place] 1.016 (1.010-1.030) 03/26/19 19:25 Urine Protein Negative (Negative) 03/26/19 19:25 Urine Ketones Negative (Negative) 03/26/19 19:25 Urine Blood Negative (Negative) 03/26/19 19:25 Urine Nitrate Negative (Negative) 03/26/19 19:25 Urine Bilirubin Negative (Negative) 03/26/19 19:25 Urine Urobilinogen Negative (Negative) 03/26/19 19:25 Ur Leukocyte Esterase Negative (Negative) 03/26/19 19:25 Urine Glucose Negative (Negative) 03/26/19 19:25 Salicylates < 2.50 mg/dL (<30) 03/26/19 19:36 Urine Opiates Screen None detected (None Detect) 03/26/19 19:25 Acetaminophen < 15 mcg/mL 03/26/19 19:36 Ur Barbiturates Screen None detected (None Detect) 03/26/19 19:25 Ur Phencyclidine Scrn None detected (None Detect) 03/26/19 19:25 Ur Amphetamines Screen None detected (None Detect) 03/26/19 19:25 U Benzodiazepines Scrn None detected (None Detect) 03/26/19 19:25 Urine Cocaine Screen None detected (None Detect) 03/26/19 19:25 U Cannabinoids Screen None detected (None Detect) 03/26/19 19:25 Serum Alcohol < 10 mg/dL (<10) 03/26/19 19:36 Vital Signs Temp Pulse Resp BP Pulse Ox 96.7 F 81 16 118/70 100 03/28/19 08:00 03/28/19 08:00 03/28/19 08:00 03/28/19 08:00 03/28/19 08:00 Continued Medication Management: Continue Outpt Medication Medications: Current Medications Acamprosate (Campral (Nf)) 666 mg PO TID [facility] Last Admin: 03/29/19 13:51 Dose: 666 mg Al Hydrox/Mg Hydrox/Simethicone (Maalox Plus*) 30 ml PO Q4H PRN PRN Reason: INDIGESTION Aripiprazole (Abilify Tab*) 20 mg PO DAILY [facility] Last Admin: 03/29/19 08:12 Dose: 20 mg Clonidine HCl (Catapres Tab*) 0.1 mg PO TID [facility] Last Admin: 03/29/19 13:50 Dose: 0.1 mg Dextrose (D50w Syringe 50 Ml*) 12.5 gm IV PUSH .FOR FS < 60 - SS PRN PRN Reason: FS < 60 Duloxetine HCl (Cymbalta Cap*) 20 mg PO BID [facility] Last Admin: 03/29/19 08:12 Dose: 20 mg Famotidine (Pepcid Tab*) 20 mg PO BID [facility] Last Admin: 03/29/19 08:12 Dose: 20 mg Multivitamins/Minerals (Theragran/Minerals Tab*) 1 tab PO DAILY [facility] Last Admin: 03/29/19 08:12 Dose: 1 tab Naproxen (Naprosyn Tab*) 250 mg PO BID PRN PRN Reason: PAIN Last Admin: 03/29/19 04:14 Dose: 250 mg Nicotine Polacrilex (Nicotine Gum*) 2 mg PO Q2H PRN PRN Reason: CRAVING Quetiapine Fumarate (Seroquel Xr Tab*) 150 mg PO 2100 [facility] Last Admin: 03/28/19 20:14 Dose: 150 mg - Discharge Plan Discharge Plan: Outpatient Follow Up Outpatient Program: [facility]
[2019-03-29] MEDS: QUEtiapine XR TAB* 50 MG PO SCH (20:24)
[2019-03-30] MEDS: Naproxen TAB* 250 MG PO PRN ×2 (05:21→11:14)
[2019-03-30] MEDS: DULoxetine DR CAP* 20 MG CAP.DR PO SCH ×2 (07:52→20:19)
[2019-03-30] MEDS: ARIPiprazole TAB* 20 MG PO SCH (07:52)
[2019-03-30] MEDS: ACAMPROSATE 333 MG PO SCH ×3 (07:53→20:19)
[2019-03-30] MEDS: Multivitamins/Minerals TAB PO SCH (07:53)
[2019-03-30] MEDS: Famotidine TAB* 20 MG PO SCH ×2 (07:53→20:19)
[2019-03-30] MEDS: cloNIDine TAB* 0.1 MG PO SCH ×3 (07:53→20:18)
[2019-03-30] MEDS: Al Hydrox/Mg Hydrox/Simet LIQ* 30 ML UDC PO PRN (12:15)
[2019-03-30] MEDS: QUEtiapine XR TAB* 50 MG PO SCH (20:18)
[2019-03-31] MEDS ORDERED: Levothyroxine TAB* 100 MCG TAB PO ONE (08:51)
--- NOTE | 2019-03-31 11:03 | PN ---
Subjective - Subjective Date of Service: 03/31/19 Service Type: 31584 Hosp care 35 min high complexity Subjective: Nursing Report: Patient was visible on unit, no chemical restraints. He is attending group activities. CC: "Fine Patient was seen and evaluated in the common room. The patient reported he continues to have a burning sensation in his chest. He went for testing today and returned and took his medications. He reported trouble with eating due to pain upon swallowing. Patient reported that he is tolerating medications without side effects. His mother provided collateral stating that her father of a similar presentation and that Fredrick did not lose 200lbs. Objective - General Observations Appearance: Neat Appears Stated Age: Yes Stature: Overweight Posture: Slumped Eye Contact: Average Behavior/Activity: WNL - Interaction Observations Attitude Towards Examiner: Cooperative Affect: Blunted Speech Pattern/Tone: Quiet Volume Thought Process: Coherent Perception: WNL Thought Content: Self-Deprecatory Thought Process: Lethality: Paranoid Ideation Hallucination Type: Auditory Delusion Type: None - Cognitive Function Orientation: A&O x 4 Level of Consciousness: Awake - Medication Compliance Cooperative with Inpatient Medication Regimen: Yes - Group Participation Participates in Group Activities: Partial Assessment - Assessment Merits Inpatient Hospitalization: For Immediate Safety Clinical Impression: 28 year old male with a history of schizoaffective disorder [place] [facility] [place] ideation Plan - Plan Treatment Plan: Name: FREDRICK GOLDBERG Birthdate: 1990 [id number] Plan # Q30 minute observation and staff pass # The patient requires psychiatric inpatient admission at this time to assure safety, receive treatment and work toward stabilization. # Collaboration with [employer] Jimy Dupree # Acute laryngeal dystonia from anti-psychotics , unlikely given history and presentation. # Odynodysphagia work up in process - will follow results once available # Medical issues managed by Medicine team who plan to continue to follow patient # Hypothyroidism treatment started today #Increase abilify 30mg daily and seroquel 150mg qhs # Nutrition Consult #Goals before discharge include: To eliminate/ reduce suicidal ideation #Monitor glucose levels and vital signs # Family meeting with his mother before discharge The risks, benefits, and alternative treatment options were discussed as well as of the risks of refusing treatment. After this discussion and an acknowledgement of this understanding was made. A risk/ benefit assessment of treatment was considered and discussed with the patient. When comparing the risks of treatment with the dangers of not receiving treatment, the benefits of treatment outweigh the treatment risks at this time. Risks of allergy, suicidal ideation, behavioral changes, dystonia, rashes, electrolyte imbalances, movement disorders, cardiac conduction changes, serotonin syndrome, metabolic risks, NMS were among some of the risks discussed. Continued Medication Management: Continue Outpt Medication Medications: Current Medications Acamprosate (Campral (Nf)) 666 mg PO TID [facility] Last Admin: 03/30/19 20:19 Dose: 666 mg Al Hydrox/Mg Hydrox/Simethicone (Maalox Plus*) 30 ml PO Q4H PRN PRN Reason: INDIGESTION Last Admin: 03/30/19 12:15 Dose: 30 ml Aripiprazole (Abilify Tab*) 20 mg PO DAILY [facility] Last Admin: 03/30/19 07:52 Dose: 20 mg Clonidine HCl (Catapres Tab*) 0.1 mg PO TID [facility] Last Admin: 03/30/19 20:18 Dose: 0.1 mg Dextrose (D50w Syringe 50 Ml*) 12.5 gm IV PUSH .FOR FS < 60 - SS PRN PRN Reason: FS < 60 Duloxetine HCl (Cymbalta Cap*) 20 mg PO BID [facility] Last Admin: 03/30/19 20:19 Dose: 20 mg Famotidine (Pepcid Tab*) 20 mg PO BID [facility] Last Admin: 03/30/19 20:19 Dose: 20 mg Multivitamins/Minerals (Theragran/Minerals Tab*) 1 tab PO DAILY [facility] Last Admin: 03/30/19 07:53 Dose: 1 tab Naproxen (Naprosyn Tab*) 250 mg PO BID PRN PRN Reason: PAIN Last Admin: 03/30/19 11:14 Dose: 250 mg Nicotine Polacrilex (Nicotine Gum*) 2 mg PO Q2H PRN PRN Reason: CRAVING Quetiapine Fumarate (Seroquel Xr Tab*) 150 mg PO 2100 [facility] Last Admin: 03/30/19 20:18 Dose: 150 mg - Discharge Plan Discharge Plan: Inpatient Hospitalization
--- NOTE | 2019-03-31 11:31 | PN ---
BSU: Group Therapy Note - Service Type Service Type: 11770 Group Psychotherapy - Cognitive Behavioral Group Therapy ( CBT):Patient was attentive and participatory in CBT programming this morning, and remained in good behavioral control. Patient expressed positive insights regarding relevant treatment interventions and goals.
[2019-03-31] MEDS: Multivitamins/Minerals TAB PO SCH (13:49)
[2019-03-31] MEDS: Famotidine TAB* 20 MG PO SCH ×2 (13:49→20:53)
[2019-03-31] MEDS: ARIPiprazole TAB* 20 MG PO SCH (13:50)
[2019-03-31] MEDS: DULoxetine DR CAP* 20 MG CAP.DR PO SCH ×2 (13:50→20:52)
[2019-03-31] MEDS: cloNIDine TAB* 0.1 MG PO SCH ×3 (13:50→20:52)
[2019-03-31] MEDS: ACAMPROSATE 333 MG PO SCH ×3 (13:50→20:52)
--- NOTE | 2019-03-31 15:39 | CONSULT ---
Subjective Date of Service: 03/31/19 Interval History: Outside records back. EGD 06/2018 with normal esophagus without erythema, normal gastric mucosa. Only abnormality was hiatal hernia. See excellent RN note 03/30 for collateral, notably that patient's mother reports his highest weight was 350 lbs (pt reports was over 400 lbs). Weight in Jun 2018 was 310 lbs. Previously had A1c of 8.0, now 5.9% and medications had to be stopped (supports story of decreased PO and weightloss). TSH was normal with PCP in December. Upper GI series today was normal with liquid barium and solid pill. GI consult placed. Review of Systems - Measurements Intake and Output: Intake and Output Last 24 Hours 03/29/19 03/30/19 03/31/19 04/01/19 06:59 06:59 06:59 06:59 Weight 296 lb 9.6 oz 295 lb 9.6 oz Objective Active Medications: Acamprosate (Campral (Nf)) 666 mg PO TID [facility] Last Admin: 03/31/19 13:54 Dose: Not Given Al Hydrox/Mg Hydrox/Simethicone (Maalox Plus*) 30 ml PO Q4H PRN PRN Reason: INDIGESTION Last Admin: 03/30/19 12:15 Dose: 30 ml Aripiprazole (Abilify Tab*) 30 mg PO DAILY [facility] Clonidine HCl (Catapres Tab*) 0.1 mg PO TID [facility] Last Admin: 03/31/19 13:54 Dose: Not Given Dextrose (D50w Syringe 50 Ml*) 12.5 gm IV PUSH .FOR FS < 60 - SS PRN PRN Reason: FS < 60 Duloxetine HCl (Cymbalta Cap*) 20 mg PO BID [facility] Last Admin: 03/31/19 13:50 Dose: 20 mg Famotidine (Pepcid Tab*) 20 mg PO BID [facility] Last Admin: 03/31/19 13:49 Dose: 20 mg Multivitamins/Minerals (Theragran/Minerals Tab*) 1 tab PO DAILY [facility] Last Admin: 03/31/19 13:49 Dose: 1 tab Naproxen (Naprosyn Tab*) 250 mg PO BID PRN PRN Reason: PAIN Last Admin: 03/30/19 11:14 Dose: 250 mg Nicotine Polacrilex (Nicotine Gum*) 2 mg PO Q2H PRN PRN Reason: CRAVING Quetiapine Fumarate (Seroquel Xr Tab*) 150 mg PO 2100 [facility] Last Admin: 03/30/19 20:18 Dose: 150 mg Vital Signs - 8 hr 03/31/19 03/31/19 08:03 12:28 Temperature 98 F Pulse Rate 71 Respiratory 17 16 Rate Blood Pressure 105/65 (mmHg) O2 Sat by Pulse 100 Oximetry Oxygen Devices in Use Now: None Appearance: obese man in NAD, sitting in bed; alert and cooperative Ears/Nose/Mouth/Throat: Clear Oropharnyx - no thrush, Mucous Membranes Moist Neck: NL Appearance and Movements; NL JVP Respiratory: Clear to Auscultation Cardiovascular: RRR Abdominal: - - reports tenderness diffusely but no guarding/rebound or grimace on deep palpation; no organomegaly Extremities: No Edema Skin: No Rash or Ulcers Neurological: Alert and Oriented x 3 Result Diagrams: 03/26/19 19:33 03/26/19 19:36 Assessment/Plan - Billing 28M with schizoaffective disorder, obesity, DM on diet control, hypothyroid, presents with suicidal ideation. Medicine consulted for odynophagia and diarrhea with weight loss. # Odynophagia and diarrhea c/b weight loss. Pt reports 200 lbs of weight loss, but mother questions this (she reports he's never been more than 350 lbs, now is 295 lbs). Was 310 lbs when he had an EGD for this symptom in Jun 2018, and that EGD significant only for hiatal hernia. Albumin/Hgb are normal, but pt has had A1c return to near normal from 8.0%. Electrolytes are normal. - GI consult placed - consented for HIV test # Hypothyroid. Will check free T4 to confirm if this is subclinical or overt. - if fT4 low, will initiate levothyroxine 200mcg daily # DM2. A1c 5.9%. May no longer need medications given recent weight loss. - decrease frequency of fingersticks - stop insulin sliding scale and orals Thank you for this interesting consult. We will continue to follow with you. Javan (mother): [phone]
[2019-03-31] MEDS: Naproxen TAB* 250 MG PO PRN (16:49)
[2019-03-31 19:07] LABS: Free T4 1.05 ng/dL (0.61-1.12)
[2019-03-31 19:10] LABS: Thyroid Peroxidase Antibodies 0.3 IU/mL (<9)
[2019-03-31] MEDS: QUEtiapine XR TAB* 50 MG PO SCH (20:53)
[2019-04-01] MEDS: Naproxen TAB* 250 MG PO PRN (06:19)
--- NOTE | 2019-04-01 11:06 | PN ---
Subjective - Subjective Date of Service: 04/01/19 Service Type: [id number] Hosp care 35 min high complexity Subjective: Nursing Report: Patient was visible on unit, no chemical restraints or PRNs. Slept overnight without incident. He is attending group activities. CC: "Fine" Patient was seen and evaluated in the common room. The patient expressed his wish to live with his mother after discharge. The patient reports attending and participating in day groups. Per nursing no behavioral issues or overnight events reported. Patient reported that he is tolerating medications without side effects. Patient was concerned about taking medications late in the day due to being on a clear liquid diet until the GI workday consultant evaluated him. Dr. Acosta was contacted and plans to evaluate the patient today , he suggested that the patient take his medications. Objective - General Observations Appearance: Disheveled, Neat Appears Stated Age: Yes Stature: Overweight Posture: Slumped Eye Contact: Average Behavior/Activity: Slowed - Interaction Observations Attitude Towards Examiner: Anxious Stated Mood: Dysphoric, Anxious Affect: Blunted Speech Pattern/Tone: Quiet Volume Thought Process: [place] Perception: WNL Thought Content: Self-Deprecatory Hallucination Type: Auditory Delusion Type: None - Cognitive Function Orientation: A&O x 4 Level of Consciousness: Awake - Medication Compliance Cooperative with Inpatient Medication Regimen: Yes - Group Participation Participates in Group Activities: Yes Assessment - Assessment Clinical Impression: 28 year old male with a history of schizoaffective disorder presented to [facility] [place] with suicidal ideation Plan - Plan Treatment Plan: Name: DHARMESH GOLDBERG Birthdate: 1990 [id number] Plan # Q30 minute observation and staff pass # The patient requires psychiatric inpatient admission at this time to assure safety, receive treatment and work toward stabilization. # Collaboration with [employer] Jimy Dupree # Odynodysphagia - GI consult with Dr. Acosta with plan to get EGD this evening. # Abilify 30mg daily and seroquel 150mg qhs #Goals before discharge include: To eliminate/ reduce suicidal ideation #Monitor glucose levels and vital signs # Collateral obtained from mother his mother Tentative discharge The risks, benefits, and alternative treatment options were discussed as well as of the risks of refusing treatment. After this discussion and an acknowledgement of this understanding was made. A risk/ benefit assessment of treatment was considered and discussed with the patient. When comparing the risks of treatment with the dangers of not receiving treatment, the benefits of treatment outweigh the treatment risks at this time. Risks of allergy, suicidal ideation, behavioral changes, dystonia, rashes, electrolyte imbalances, movement disorders, cardiac conduction changes, serotonin syndrome, metabolic risks, NMS were among some of the risks discussed. Continued Medication Management: Continue Outpt Medication Medications: Current Medications Acamprosate (Campral (Nf)) 666 mg PO TID [facility] Last Admin: 03/31/19 20:52 Dose: 666 mg Al Hydrox/Mg Hydrox/Simethicone (Maalox Plus*) 30 ml PO Q4H PRN PRN Reason: INDIGESTION Last Admin: 03/30/19 12:15 Dose: 30 ml Aripiprazole (Abilify Tab*) 30 mg PO DAILY [facility] Clonidine HCl (Catapres Tab*) 0.1 mg PO TID [facility] Last Admin: 03/31/19 20:52 Dose: 0.1 mg Dextrose (D50w Syringe 50 Ml*) 12.5 gm IV PUSH .FOR FS < 60 - SS PRN PRN Reason: FS < 60 Duloxetine HCl (Cymbalta Cap*) 20 mg PO BID [facility] Last Admin: 03/31/19 20:52 Dose: 20 mg Famotidine (Pepcid Tab*) 20 mg PO BID [facility] Last Admin: 03/31/19 20:53 Dose: 20 mg Multivitamins/Minerals (Theragran/Minerals Tab*) 1 tab PO DAILY [facility] Last Admin: 03/31/19 13:49 Dose: 1 tab Naproxen (Naprosyn Tab*) 250 mg PO BID PRN PRN Reason: PAIN Last Admin: 04/01/19 06:19 Dose: 250 mg Nicotine Polacrilex (Nicotine Gum*) 2 mg PO Q2H PRN PRN Reason: CRAVING Quetiapine Fumarate (Seroquel Xr Tab*) 150 mg PO 2100 [facility] Last Admin: 03/31/19 20:53 Dose: 150 mg - Discharge Plan Discharge Plan: Inpatient Hospitalization
[2019-04-01] MEDS: DULoxetine DR CAP* 20 MG CAP.DR PO SCH ×2 (11:22→20:17)
[2019-04-01] MEDS: ACAMPROSATE 333 MG PO SCH ×3 (11:22→20:19)
[2019-04-01] MEDS: ARIPiprazole TAB* 15 MG PO SCH (11:22)
[2019-04-01] MEDS: cloNIDine TAB* 0.1 MG PO SCH ×3 (11:23→20:17)
[2019-04-01] MEDS: Multivitamins/Minerals TAB PO SCH (11:23)
[2019-04-01] MEDS: Famotidine TAB* 20 MG PO SCH ×2 (11:23→20:17)
[2019-04-01 12:00] LABS: Hematocrit 45 % (42-52); Hemoglobin 15.7 g/dL (14.0-18.0); Mean Corpuscular HGB Conc 35 g/dL (31-36); Mean Corpuscular Hemoglobin 30 pg (27-31); Mean Corpuscular Volume 86 fL (80-94); Mean Platelet Volume 7.3 fL (7.4-10.4); Platelet Count 196 10^3/uL (150-450); Red Cell Distribution Width 13 % (10-15); White Blood Count 6.5 10^3/uL (3.5-10.8)
[2019-04-01 12:15] LABS: Albumin 4.7 g/dL (3.2-5.2); Albumin/Globulin Ratio 1.6 (1-3); BUN/Creatinine Ratio 24.6 (8-20); Calcium 9.9 mg/dL (8.6-10.3); EGFR African American 175.7 (>60); EGFR Non-African American 145.2 (>60); Potassium 4.3 mmol/L (3.5-5.0); Total Bilirubin 0.8 mg/dL (0.2-1.0); Total Protein 7.7 g/dL (6.4-8.9)
[2019-04-01 13:11] LABS: HIV 4th Generation Negative (Negative)
--- NOTE | 2019-04-01 15:27 | CONS ---
GASTROENTEROLOGY CONSULT: DATE: CONSULTING PHYSICIAN: Rk Burris MD Behavioral Sciences REASON FOR CONSULTATION: Complaints of inability to eat solid food and weight loss. HISTORY: This 28-year-old man with schizoaffective disorder, originally from [place], has been at [facility] (for the first time) since 02/21/19 having been transferred from a facility in [place], [place]. He states he has been in several other rehabs previously, the first being in [place] in 2014 and several times back and forth to one in [place]. He says he is having trouble with solid food. The nurse today on the BSU observed that he got down all his pills with a glass of water with no delay or difficulty. He did have an upper GI series yesterday with a barium pill and had no trouble. Last June, land acquisition analyst at [facility] performed an upper endoscopy that was normal. In the record, there is also a note from his primary care physician in [place] referring to chronic diarrhea as "longstanding". There is mention of C. difficile in the remote past, but no further details are available. He has never had a colonoscopy. The [place] land acquisition analyst commenting on the diarrhea fall 2017 had counseled getting off metformin though it shows on one of his recent med lists While on the psychiatry unit here, he has had visits from his mother, who has written notes to the staff saying she believes attention getting behavior is causing an exaggeration in his symptoms. She has volunteered to take the patient back to her home on 04/03/19. PAST MEDICAL HISTORY: 1. Morbid obesity - maximum weight stated by the mother 350, currently 295 ( a smaller wgt loss than quoted by the pt) 2. Adult-onset diabetes, currently on metformin 500 b.i.d. at home. 3. Alcohol dependence - on acamprosate currently. [facility] in ER records he has been sober for 6 weeks. 4. Schizoaffective disorder - currently on acamprosate, quetiapine, duloxetine , and clonidine. 5. History of lumbar laminectomy. FAMILY HISTORY: His mother has adult onset diabetes. SOCIAL HISTORY: He has been in multiple rehabs since 2014. He was brought in for this admission voluntarily with suicidal ideation. REVIEW OF SYSTEMS: No history of known cardiac or pulmonary disease. He sedated easily for the EGD last June. He has had a lumbar laminectomy as his only surgery. PHYSICAL EXAMINATION: He is a substantially overweight tall young man, in no overt distress at this time. He has multiple arm tattoos. His skin appears normal otherwise. HEENT exam is unremarkable. His lungs are clear and heart sounds are regular. The abdomen is obese, symmetric, soft and without guarding or rigidity. Extremities show no edema. DIAGNOSTIC STUDIES/LAB DATA: Labs today on 04/01/19: Hemoglobin 15.7, hematocrit 45, MCV 86, white count 6.5. Creatinine 0.65, BUN 16, sodium 137, potassium 4.3. LFTs normal, albumin 4.7, bilirubin 0.80. And a week ago TSH 6.01. Serologies show hepatitis C negative, hepatitis A IgG negative. HIV 1 week ago negative. IMPRESSION: This 28-year-old man complains of odynophagia. Pill esophagitis is a possibility. Other entities are considered much less likely given a normal endoscopy 8 months ago, normal CBC negative HIV serology, normal UGI series etc. Upper endoscopy is planned. [id number]/[facility] #: [id number] [facility] CENTERJonn
[2019-04-01] MEDS ORDERED: fentaNYL* 50 MCG/ML 2 ML VIAL (100 MCG VIAL) ONE (16:24)
[2019-04-01] MEDS ORDERED: Midazolam* 1 MG/ML 10 ML VIAL (10 MG) ONE (16:24)
--- NOTE | 2019-04-01 19:10 | PN ---
Subjective Date of Service: 04/01/19 Interval History: Patient continues to c/o feeling poorly, reports that he has pain with swallowing and eating solid foods for the past 2 months. States that he has had nausea for 2 years and routinely takes zofran with meals. Patient denies fever or chills, denies abd pain n/v/d denies chest pain or shortness of breath. Family History: Unchanged from Admission Social History: Unchanged from Admission Past Medical History: Unchanged from Admission Objective Active Medications: Acamprosate (Campral (Nf)) 666 mg PO TID [facility] Last Admin: 04/01/19 14:06 Dose: 666 mg Al Hydrox/Mg Hydrox/Simethicone (Maalox Plus*) 30 ml PO Q4H PRN PRN Reason: INDIGESTION Last Admin: 03/30/19 12:15 Dose: 30 ml Aripiprazole (Abilify Tab*) 30 mg PO DAILY [facility] Last Admin: 04/01/19 11:22 Dose: 30 mg Clonidine HCl (Catapres Tab*) 0.1 mg PO TID [facility] Last Admin: 04/01/19 14:06 Dose: 0.1 mg Dextrose (D50w Syringe 50 Ml*) 12.5 gm IV PUSH .FOR FS < 60 - SS PRN PRN Reason: FS < 60 Duloxetine HCl (Cymbalta Cap*) 20 mg PO BID [facility] Last Admin: 04/01/19 11:22 Dose: 20 mg Famotidine (Pepcid Tab*) 20 mg PO BID [facility] Last Admin: 04/01/19 11:23 Dose: 20 mg Multivitamins/Minerals (Theragran/Minerals Tab*) 1 tab PO DAILY [facility] Last Admin: 04/01/19 11:23 Dose: Not Given Naproxen (Naprosyn Tab*) 250 mg PO BID PRN PRN Reason: PAIN Last Admin: 04/01/19 06:19 Dose: 250 mg Nicotine Polacrilex (Nicotine Gum*) 2 mg PO Q2H PRN PRN Reason: CRAVING Quetiapine Fumarate (Seroquel Xr Tab*) 150 mg PO 2100 [facility] Last Admin: 03/31/19 20:53 Dose: 150 mg Vital Signs - 8 hr 04/01/19 04/01/19 14:03 15:16 Pulse Rate 74 Respiratory 16 Rate Blood Pressure 110/69 (mmHg) O2 Sat by Pulse 100 Oximetry Oxygen Devices in Use Now: None Appearance: appears comfortable sitting of the edge of the bed. Eyes: No Scleral Icterus Ears/Nose/Mouth/Throat: Clear Oropharnyx, Mucous Membranes Moist Neck: NL Appearance and Movements; NL JVP, Trachea Midline Respiratory: Symmetrical Chest Expansion and Respiratory Effort, Clear to Auscultation Cardiovascular: NL Sounds; No Murmurs; No JVD, No Edema Abdominal: NL Sounds; No Tenderness; No Distention Extremities: No Edema, No Clubbing, Cyanosis Skin: No Rash or Ulcers Neurological: Alert and Oriented x 3, NL Muscle Strength and Tone Nutrition: Taking PO's Result Diagrams: 04/01/19 11:00 04/01/19 11:00 Assess/Plan/Problems-Billing 28M with schizoaffective disorder, obesity, DM on diet control, hypothyroid, presents with suicidal ideation. Medicine consulted for odynophagia and diarrhea with weight loss. # Odynophagia and diarrhea c/b weight loss. Pt reports 200 lbs of weight loss, but mother questions this (she reports he's never been more than 350 lbs, now is 295 lbs). Was 310 lbs when he had an EGD for this symptom in Jun 2018, and that EGD significant only for hiatal hernia. Albumin/Hgb are normal, but pt has had A1c return to near normal from 8.0%. Electrolytes are normal. - GI consult placed - consented for HIV test # Hypothyroid. Will check free T4 to confirm if this is subclinical or overt. - if fT4 low, will initiate levothyroxine 200mcg daily # DM2. A1c 5.9%. May no longer need medications given recent weight loss. - decrease frequency of fingersticks - stop insulin sliding scale and orals Thank you for this interesting consult. We will continue to follow with you. Javan (mother): [phone] - Patient Problems (1) Odynophagia Current Visit: Yes Status: Acute Code(s): R13.10 - DYSPHAGIA, UNSPECIFIED SNOMED Code(s): 40038007 Comment: GI was consulted- Upper endoscopy pending recommendations per GI (2) Subclinical hypothyroidism Current Visit: Yes Status: Acute Code(s): E03.9 - HYPOTHYROIDISM, UNSPECIFIED SNOMED Code(s): 13622064 Comment: Free T4 normal 1.05 - no need for levothyroxine at this time - would recommended repeat TSH and free t4 in 4-6 weeks Status and Disposition: Will sign off at this time, please do not hesitate to contact our service for further general medical needs
[2019-04-01] MEDS: QUEtiapine XR TAB* 50 MG PO SCH (20:17)
[2019-04-02] MEDS: Naproxen TAB* 250 MG PO PRN (02:36)
--- NOTE | 2019-04-02 03:28 | PRO ---
DATE: 04/01/19 - ROOM #206 CONSULTING PHYSICIAN: Rk Burris MD, Behavioral Sciences Unit.* PROCEDURE: Upper gastrointestinal endoscopy and a biopsy of duodenum and gastric body. INDICATION: This 28-year-old man is admitted to [facility] on 02/21/19, said that he has been having trouble eating solid food for a couple of months. He was in the facility in [place], [place] for a couple of weeks before going to [facility] and then from [facility] about a week ago to the psychiatry unit here. He has been losing weight. He has not been observed to vomit and he has been able to take his pills easily. Informed consent was obtained with an opportunity for questions and special concerns. Prior upper endoscopy June 2018 in [place] advanced smoothly with midazolam 6, fentanyl 200. ENDOSCOPIST: Clifford Acosta MD MEDICATIONS: Midazolam 9, fentanyl 150. FINDINGS: He is a substantially overweight young man approximately 295 pounds. He was positioned left side down and moderate sedation induced with sequential doses of these sedatives and he tolerated the exam exceedingly well, hardly any gagging whatsoever. EGD: Larynx - symmetric and limited views. Esophagus - easily entered and the mucosa is normal in the upper, mid, and lower esophagus with EG junction at 41. There were no areas of erythema, scarring, erosions or any acute or chronic inflammation whatsoever. The esophageal mucosa appeared entirely normal. Stomach - generally normal mucosa in the cardia, fundus, body, and antrum. Duodenum - the pylorus, bulb, and second through fourth portions appeared normal. In light of his persistent complaint of diarrhea and some documented weight loss, biopsies were taken of third portion of duodenum and then also gastric greater curvature, where there was some minimal speckled erythema and granular change, but no erosions or gross deformity. A CLOtest was also obtained. IMPRESSION: 1. Mild gastritis - consistent with his medication use and not a potential cause for any substantial symptoms. It would clearly not affect swallowing. 2. Normal esophagus. 3. Odynophagia - no cause found - preprocedure pill esophagitis was a leading possibility. While nothing was seen today, it is possible that remote pill esophagitis events could have led to recurring fears of this, but there are no signs of it currently. 4. Weight loss - no cause found. [id number]/[facility] #: [id number] [facility]
[2019-04-02] MEDS: DULoxetine DR CAP* 20 MG CAP.DR PO SCH ×2 (08:40→20:20)
[2019-04-02] MEDS: ARIPiprazole TAB* 15 MG PO SCH (08:41)
[2019-04-02] MEDS: Multivitamins/Minerals TAB PO SCH (08:41)
[2019-04-02] MEDS: ACAMPROSATE 333 MG PO SCH ×3 (08:41→20:19)
[2019-04-02] MEDS: cloNIDine TAB* 0.1 MG PO SCH ×3 (08:41→20:20)
[2019-04-02] MEDS: Famotidine TAB* 20 MG PO SCH ×2 (08:41→20:20)
[2019-04-02] MEDS ORDERED: Aripiprazole LAUROXIL 1,064 MG/3.9 ML SYRINGE IM ONE (11:50)
--- NOTE | 2019-04-02 11:58 | PN ---
Subjective - Subjective Date of Service: 04/02/19 Service Type: 52716 Hosp care 35 min high complexity Subjective: Nursing Report: Patient was visible on unit, no chemical restraints or PRNs. Slept overnight without incident. He is attending group activities. CC: "fine" Patient was seen and evaluated in the common room. The patient reported eating after getting his procedure yesterday. He denied nausea vomiting or fever. He reported having adequate appetite and sleep. The patient reports attending and participating in day groups. Per nursing no behavioral issues or overnight events reported. Patient reported that he is tolerating medications without side effects. He is in agreement with getting a long acting anti-psychotic injection. His mother plans to pick him up tomorrow evening. Objective - General Observations Appearance: Neat Appears Stated Age: Yes Stature: WNL, Overweight Posture: Slumped Eye Contact: Average Behavior/Activity: WNL - Interaction Observations Attitude Towards Examiner: Cooperative Stated Mood: Anxious Affect: Blunted Speech Pattern/Tone: Quiet Volume Thought Process: Coherent Perception: WNL Thought Content: WNL Hallucination Type: Auditory Delusion Type: None - Cognitive Function Orientation: A&O x 4 Level of Consciousness: Awake - Medication Compliance Cooperative with Inpatient Medication Regimen: Yes - Group Participation Participates in Group Activities: Partial Assessment - Assessment Merits Inpatient Hospitalization: For Immediate Safety Clinical Impression: 28 year old male with a history of schizoaffective disorder [place] [facility] [place] Plan - Plan Treatment Plan: Name: DHARMESH GOLDBERG Birthdate: 1990 [id number] Plan # Q30 minute observation and staff pass # The patient requires psychiatric inpatient admission at this time to assure safety, receive treatment and work toward stabilization. # Collaboration with [employer] Jimy Dupree # Odynodysphagia - GI consult completed and EGD performed suggestive of pill esophagitis as possible cause. #Goals before discharge include: To eliminate/ reduce suicidal ideation # Collateral obtained from mother his mother # Aristada initio 675mg + Aristada 1064mg IM to be given today. Tentative discharge The risks, benefits, and alternative treatment options were discussed as well as of the risks of refusing treatment. After this discussion and an acknowledgement of this understanding was made. A risk/ benefit assessment of treatment was considered and discussed with the patient. When comparing the risks of treatment with the dangers of not receiving treatment, the benefits of treatment outweigh the treatment risks at this time. Risks of allergy, suicidal ideation, behavioral changes, dystonia, rashes, electrolyte imbalances, movement disorders, cardiac conduction changes, serotonin syndrome, metabolic risks, NMS were among some of the risks discussed. Continued Medication Management: Start Medication Medications: Current Medications Acamprosate (Campral (Nf)) 666 mg PO TID [facility] Last Admin: 04/02/19 08:41 Dose: 666 mg Al Hydrox/Mg Hydrox/Simethicone (Maalox Plus*) 30 ml PO Q4H PRN PRN Reason: INDIGESTION Last Admin: 03/30/19 12:15 Dose: 30 ml Aripiprazole (Abilify Tab*) 30 mg PO DAILY [facility] Last Admin: 04/02/19 08:41 Dose: 30 mg Aripiprazole Lauroxil (Aristada Initio (First Dose)) 675 mg IM ONCE ONE Stop: 04/02/19 11:50 Aripiprazole Lauroxil (Aristada) 1,064 mg IM ONCE ONE Stop: 04/02/19 11:51 Clonidine HCl (Catapres Tab*) 0.1 mg PO TID [facility] Last Admin: 04/02/19 08:41 Dose: 0.1 mg Dextrose (D50w Syringe 50 Ml*) 12.5 gm IV PUSH .FOR FS < 60 - SS PRN PRN Reason: FS < 60 Duloxetine HCl (Cymbalta Cap*) 20 mg PO BID [facility] Last Admin: 04/02/19 08:40 Dose: 20 mg Famotidine (Pepcid Tab*) 20 mg PO BID [facility] Last Admin: 04/02/19 08:41 Dose: 20 mg Multivitamins/Minerals (Theragran/Minerals Tab*) 1 tab PO DAILY [facility] Last Admin: 04/02/19 08:41 Dose: 1 tab Naproxen (Naprosyn Tab*) 250 mg PO BID PRN PRN Reason: PAIN Last Admin: 04/02/19 02:36 Dose: 250 mg Nicotine Polacrilex (Nicotine Gum*) 2 mg PO Q2H PRN PRN Reason: CRAVING Quetiapine Fumarate (Seroquel Xr Tab*) 150 mg PO 2100 [facility] Last Admin: 04/01/19 20:17 Dose: 150 mg - Discharge Plan Discharge Plan: Inpatient Hospitalization
[2019-04-02] MEDS: Al Hydrox/Mg Hydrox/Simet LIQ* 30 ML UDC PO PRN (15:44)
[2019-04-02] MEDS: QUEtiapine XR TAB* 50 MG PO SCH (20:21)
[2019-04-03] MEDS: Naproxen TAB* 250 MG PO PRN ×2 (06:16→13:18)
[2019-04-03] MEDS: ARIPiprazole TAB* 15 MG PO SCH (08:18)
[2019-04-03] MEDS: Multivitamins/Minerals TAB PO SCH (08:18)
[2019-04-03] MEDS: ACAMPROSATE 333 MG PO SCH ×2 (08:18→13:17)
[2019-04-03] MEDS: Famotidine TAB* 20 MG PO SCH (08:19)
[2019-04-03] MEDS: DULoxetine DR CAP* 20 MG CAP.DR PO SCH (08:19)
[2019-04-03] MEDS: cloNIDine TAB* 0.1 MG PO SCH ×2 (08:19→13:17)
[2019-04-03] MEDS ORDERED: Benzocaine (DENTAL) 10%* TOP.GEL TOPICAL PRN (10:02)
--- NOTE | 2019-04-03 10:20 | DS ---
Subjective - Subjective Service Types: 16[address] [facility] Day [facility]mt complex over 30 min Discharge Date: 04/03/19 Subjective: CC: " Good" Patient looks forward to seeing his mother and getting his own place in the next year. The patient was seen and evaluated before discharge today. The patient reported having adequate appetite and sleep. The patient reports attending and participating in day groups. Per nursing no behavioral issues or overnight events reported. Patient reported tolerating medications without side effects. IDENTIFYING DATA: Fredrick is a 28-year-old never , both physically and mentally disabled, male with an extensive history of substance dependence and at least 3 prior psychiatric hospitalizations, who was brought into the [facility] ED by ambulance from [facility] due to having command auditory hallucinations, suicidal ideations as well as a plan to hang himself. CHIEF COMPLAINT: "I thought about going into the [place] and hanging myself." HISTORY OF PRESENT ILLNESS: Fredrick has been in inpatient substance abuse rehab at [facility] since the end of January and was doing fine until yesterday when his mother told him that one of his best friends, a ute, who committed suicide by blowing his brain off. He has been experiencing some command auditory hallucinations for the last week or so, which got very intense after hearing this news. Then, he started having plans to execute the suicide. He reports that there are plenty of reasons and room for committing suicide in and around [facility] and he felt really unsafe. At that point, he spoke with one of the staff members, who sent him here for further evaluation. Other than experiencing auditory hallucinations, he denies any delusions or paranoia, homicidal ideations, or visual hallucinations. He was thinking about going home to his mom's after discharge from [facility], but at this point, he does not feel safe to go home because he does not believe he can keep himself safe. PAST PSYCHIATRIC HISTORY: As mentioned earlier, Fredrick had 3 prior psychiatric hospitalizations in [facility] in [place] as well as [facility] in [place]. He was previously diagnosed with schizoaffective disorder and was being treated with both antipsychotics as well as mood stabilizers. SUBSTANCE ABUSE HISTORY: Fredrick reports of an extensive substance abuse history, which included excessive drinking, doing cocaine, and smoking pot. He never used IV drugs. All he did was snorting or smoking. His last use of any drug or alcohol was January this year. PAST MEDICAL HISTORY: Remarkable for obesity, insulin-dependent diabetes mellitus, and swallowing difficulty. He reports of losing about 200 pounds since he was admitted to [facility] because of difficulty swallowing any solid food. MEDICATIONS: His home medications include: 1. Acamprosate calcium. 2. Duloxetine 30 mg p.o. b.i.d. 3. Metformin hydrochloride 500 mg p.o. b.i.d. 4. Naproxen sodium 275 mg p.o. b.i.d. 5. Quetiapine 150 mg in the morning and 300 mg at bedtime. 6. Ranitidine 150 mg p.o. b.i.d. 7. Clonidine 0.1 mg p.o. t.i.d. 8. Glipizide 5 mg p.o. b.i.d. ALLERGIES: Include ACETAMINOPHEN which causes anaphylactic shock, HYDROCODONE also causes anaphylactic shock, KETOROLAC (TORADOL) also causes anaphylactic shock, HYDROMORPHONE (DILAUDID) causes anaphylactic shock, PENICILLIN - same, ZIPRASIDONE - same. FAMILY HISTORY: Fredrick reports that his mother suffers from bipolar disorder. Both his younger sisters also suffer from some form of mental illness and they are both substance abusers. PERSONAL AND SOCIAL HISTORY: Fredrick is both physically and mentally disabled and on social security benefits. After finishing high school, he did some college; however, quit before he obtained any degree. He has never worked and is totally dependent on social security benefits. He lives with his mother in [place] along with his 2 sisters. Never been , is not in any significant relationships. He is not sexually active. Does not have any children. He also denies any legal problems. GENERAL: He does not appear to be in any physical distress. He is obese, appropriately and neatly dressed and groomed. VITAL SIGNS: His vitals show blood pressure of 142/90, pulse 116, pulse ox 97% , temperature 98.3, respirations 20. HEENT: His head appears to be atraumatic, normocephalic. His ears appear little bit upright indicative of alcohol syndrome, but the head size is within normal limits. Eyes: PERRLA. EOMI x2. Anicteric sclerae. Conjunctivae normal. Ear canals clean with intact eardrums. NECK: Supple. Difficult to move, but is doable. Very short and thick neck. Midline trachea. No adenopathy or thyromegaly appreciated. CHEST: Equal air entry bilaterally. No wheezing or crackles. HEART: Sounds are S1 and S2 only. No murmurs or gallops. ABDOMEN: Difficult to palpate, but nontender, soft. Bowel sounds positive in all quadrants. MUSCULOSKELETAL: Within normal limits. NEUROLOGICAL: Alert and awake. Cranial nerves II through XII grossly intact. No sensory deficits. Pulses in 4 extremities are palpable. LABORATORY DATA: Labs were all unremarkable, which include CBC with differential, urinalysis, urine drug screen, comprehensive metabolic profile. His WBC count is 8.8, hemoglobin 15.2 , hematocrit 44, platelet count 183. His sodium level is 139, potassium 4, chloride 104, carbon dioxide 27, BUN 14, creatinine 76. Rest of the reports look within normal limits. MENTAL STATUS EXAMINATION: Fredrick is alert and oriented to time, place, and person. Makes good eye contact. Pleasant and cooperative with the assessments. His voice is normal in all spheres. Intelligence appears to be average as evidenced by his vocabulary, educational background, and fund of knowledge. Memory functions are intact in all spheres. Reports of hearing command auditory hallucinations of his father who is in [place] and the voices are telling him he is no good and should kill himself. Denies any visual hallucinations. He is not sure whether he is going to act on his instinct to kill himself or listen to the command voices, but contracts for safety at this time. His insight and judgment appear to be fair to good. He denies any delusions or paranoia at this time. SUMMARY: This 28-year-old male with long history of polysubstance use disorder and previous diagnosis of schizoaffective disorder who has been hearing voices of his father who is telling him to kill himself, which intensified after he heard one of his buddies committed suicide recently by blowing his brains out. He thought about hanging himself in the [place]; however, instead he told somebody at [facility] who sent him here for further evaluation and treatments. DIAGNOSTIC IMPRESSION: MENTAL HEALTH DIAGNOSES: 1. Psychosis, NOS. 2. Rule out schizoaffective disorder. 3. Rule out schizophrenia. PHYSICAL HEALTH DIAGNOSES: 1. Insulin-dependent diabetes mellitus type 2. 2. Obesity. TREATMENT RECOMMENDATIONS: Fredrick will remain hospitalized on behavioral science unit for his safety, diagnostic clarification, and stabilization of acute symptoms. His code status will remain full. Supportive milieu, group and individual therapy will be initiated. My plan is to continue all his outpatient medications; however, I will start him on risperidone 1 mg at bedtime with an intention to switch him from Seroquel to risperidone as Seroquel does not appear to help. Moreover with his diabetes and weight gain, risperidone will be a better choice for him at least for now. However, his assigned psychiatrist on the unit may decide otherwise. Diagnosis on Discharge: Schizoaffective Disorder, in partial remission. Cocaine use disorder in remission. Alcohol use disorder in remission. Condition at the time of discharge: At the time of discharge patient showed improvement of sleep and appetite. The patient was not a danger to self or others. The patient denied suicidal ideation , intent or plan. The patient denied homicidal targets, ideation, intent or plan. This patient participated in psychosocial rehabilitation and gained some insight into problems. The patient gained insight into mental illness, triggers, and treatment. The patient took medication as prescribed. The patient denied side effects of medication and objective signs of side effects were not evident. Therapy Resources were offered to the patient. Patient was given a supply of prescriptions at the time of discharge. The patient plans to attend follow up care with the follow up arrangements that were discussed and put in place. Patient was asked to keep appointments as scheduled, take medication as prescribed, have routine follow up care with their primary care physician and refrain from any use of alcohol or drugs. Objective - General Observations Appearance: Neat Appears Stated Age: Yes Stature: WNL, Overweight Posture: Slumped Eye Contact: Average Behavior/Activity: WNL - Interaction Observations Attitude Towards Examiner: Cooperative Affect: Blunted Speech Pattern/Tone: Clear Thought Process: Coherent Perception: WNL Thought Content: WNL Hallucination Type: None Delusion Type: None - Cognitive Function Orientation: A&O x 4 Level of Consciousness: Awake - Medication Compliance Cooperative with Inpatient Medication Regimen: Yes - Group Participation Participates in Group Activities: Yes Treatment Course & Assessment Clinical Course & Impression: 2 Hospital course part A: 28 year old male with a history of schizoaffective disorder presented to [facility] with suicidal ideation. Hospital course part B: Labs ordered included CBC, CMP, UDS, TSH, HBA1c, TSH, Toxicology screen, Urine analysis, and lipid profile. Labs were reviewed and did not require the need for further evaluation. Vital signs were monitored during the course of admission. EKG was reviewed from 03/13/19 and QTc within normal range. The patient was admitted to the adult behavioral unit and placed on 15 minute check for safety. At a later time the patient was on Q30 minute observation and staff pass privileges. With those limits being extended , there were no occurrence of behavioral incidents. The patient did well on the unit and went to groups. Interacted with peers had adequate sleep and regular appetite. Tolerated medication changes without side effects. Group therapy and services were offered. The risks, benefits, and alternative treatment options were discussed as well as of the risks of refusing treatment. Treatment associated risks discussed. After this discussion made an acknowledgement of this understanding. Follow up care appointments were put in place for follow up care. The importance of monitoring for metabolic changes was discussed and acknowledgement of this understanding was made. Patient informed not to abruptly stop or start new medications before consulting with a medical professional. Improvements in patient from the time of admission include: Improved affect, sleep and decrease in anxiety. No longer suicidal and no longer having feelings of hopelessness. The patient expressed readiness for discharge home. The patient presents with a broader range of affect, and the absence of depressed mood, delusions, perceptual disturbances. The patient denied suicidal and or homicidal ideation intent or plan. Overall, the patient responded well to inpatient treatment as evidenced by their report of strengthening of coping mechanisms, reduced distress, and more positive outlook on circumstances. Of note there was an improvement of recognizing how emotional state can effect mood and behavior. Safety precautions were put in place which included involving the patient and their family to closely monitor for changes in mental state. In addition, implementing follow up care, screening for the need to remove/securing firearms , weapons and stockpile of medications. Patient/ family instructed to immediately call 911 should any safety concerns arise. AIMS was performed and insignificant for involuntary movement disorders. The patient was advised of the 24 hour / 7 days a week availability of the emergency room and to call 911 in the event of an emergency such as being suicidal and/ or homicidal. The patient was informed of the contact information for [facility], Suicide Prevention and Crisis Services, National Suicide Prevention Lifeline, [facility], Alcoholics Anonymous, and [facility]. Family was contacted before discharge. His mother confirmed that the patient is at their baseline and is in agreement with the discharge plan. They were advised on how the days following discharge can be a vulnerable period and to look out for warning signs associated with decompensation and progression of mental illness. They were notified of the resources available in the event these situations arise and confirmed that the patient has no access to firearms or stock piles of medications. Consults included to hospitalist team for medical issues including odynodysphagia weight loss, uncontrolled diabetes, and hypothyroidism. GI was consulted for Odynodysphagia, diarrhea and weight loss. Levothyroxine was not continued based on medicines recommendations of a normal T4. Upper GI barium series performed without findings. GI consult with Dr. Acosta was completed and EGD was performed without significant findings. Patient was able to tolerate eating status post EGD procedure. Patient advised to have regular follow up appointments with his primary care physician. Patients home medications were continued. Medications started included abilify 20mg daily and seroquel 150mg qhs. Seroquel 300mg and risperdal was discontinued. Patient is currently on two antipsychotics because seroquel is being tapered down. Given a history of diabetes and lack of clinical effectiveness, seroquel is being tapered down and eventually discontinued. Patient reported remission with Abilify in the past. Aristada initio 675mg + Aristada 1064mg IM given on 04/02/19 without complication. [id number] IM next due 05/28/19. Patient was not assaultive or a behavioral problem during the course of admission. The patient showed improvement of hygiene and was able to carry out activities of daily living. Patient will be discharged to live at home to live with his mother in [place]. Follow up appointment at [facility] and Dr. Scales 04/11/19 10am. Patient informed of follow up appointment times. See more details for follow up care in the discharge plan. Risk factors: , single, history of mental illness. Prior suicide attempt. Friend recently from suicide. Protective factors: Currently no suicidal ideation, intent or plan. Has support system. No history of service. Currently no feelings of hopelessness, not in an occupation of social isolation, no family history of suicide, doesnt have access to firearms. Doesnt have command hallucinations and or psychotic features at this time. Currently no substance abuse or alcohol abuse. Not an anniversary of a loss of a loved one. No changes in relationship status, housing, job, or school. Currently future orientated. Patient engaged in treatment and compliant with medication Vital Signs Temp Pulse Resp BP Pulse Ox 96.9 F 63 17 110/65 100 04/03/19 08:19 04/03/19 08:19 04/03/19 08:19 04/03/19 08:19 04/03/19 08:19 Laboratory Tests 03/26/19 03/26/19 03/26/19 19:25 19:25 19:33 WBC 8.8 RBC 5.07 Hgb 15.2 Hct 44 MCV 86 MCH 30 MCHC 35 RDW 13 Plt Count 183 MPV 6.9 L Neut % (Auto) 69.8 Lymph % (Auto) 23.4 Barton % (Auto) 5.4 Eos % (Auto) 0.9 Baso % (Auto) 0.5 Absolute Neuts (auto) 6.1 Absolute Lymphs (auto) 2.0 Absolute Monos (auto) 0.5 Absolute Eos (auto) 0.1 Absolute Basos (auto) 0.0 Absolute Nucleated RBC 0.0 Nucleated RBC % 0.1 Sodium Potassium Chloride Carbon Dioxide Anion Gap BUN Creatinine Est GFR ( Amer) Est GFR (Non-Af Amer) BUN/Creatinine Ratio Glucose POC Glucose (mg/dL) Hemoglobin A1c Calcium Magnesium Total Bilirubin AST ALT Alkaline Phosphatase Total Protein Albumin Globulin Albumin/Globulin Ratio Triglycerides Cholesterol LDL Cholesterol HDL Cholesterol TSH Free T4 Thyroxine (T4) Urine Color Yellow Urine Appearance Clear Urine pH 6.0 Ur Specific [place] 1.016 Urine Protein Negative Urine Ketones Negative Urine Blood Negative Urine Nitrate Negative Urine Bilirubin Negative Urine Urobilinogen Negative Ur Leukocyte Esterase Negative Urine Glucose Negative Salicylates Urine Opiates Screen None detected Acetaminophen Ur Barbiturates Screen None detected Ur Phencyclidine Scrn None detected Ur Amphetamines Screen None detected U Benzodiazepines Scrn None detected Urine Cocaine Screen None detected U Cannabinoids Screen None detected Serum Alcohol Thyroid Peroxidase Ab HIV 1&2 Ab/P24 Ag 4thGn 03/26/19 03/26/19 03/27/19 19:36 19:36 07:51 WBC RBC Hgb Hct MCV MCH MCHC RDW Plt Count MPV Neut % (Auto) Lymph % (Auto) Barton % (Auto) Eos % (Auto) Baso % (Auto) Absolute Neuts (auto) Absolute Lymphs (auto) Absolute Monos (auto) Absolute Eos (auto) Absolute Basos (auto) Absolute Nucleated RBC Nucleated RBC % Sodium 139 Potassium 4.0 Chloride 104 Carbon Dioxide 27 Anion Gap 8 BUN 14 Creatinine 0.76 Est GFR ( Amer) 146.7 Est GFR (Non-Af Amer) 121.3 BUN/Creatinine Ratio 18.4 Glucose 110 H POC Glucose (mg/dL) Hemoglobin A1c 5.9 H Calcium 9.4 Magnesium Total Bilirubin 0.50 AST 16 ALT 20 Alkaline Phosphatase 67 Total Protein 7.2 Albumin 4.2 Globulin 3.0 Albumin/Globulin Ratio 1.4 Triglycerides 62 Cholesterol 142 LDL Cholesterol 91 HDL Cholesterol 39.1 TSH 6.01 H Free T4 Thyroxine (T4) 1.54 L Urine Color Urine Appearance Urine pH Ur Specific [place] Urine Protein Urine Ketones Urine Blood Urine Nitrate Urine Bilirubin Urine Urobilinogen Ur Leukocyte Esterase Urine Glucose Salicylates < 2.50 Urine Opiates Screen Acetaminophen < 15 Ur Barbiturates Screen Ur Phencyclidine Scrn Ur Amphetamines Screen U Benzodiazepines Scrn Urine Cocaine Screen U Cannabinoids Screen Serum Alcohol < 10 Thyroid Peroxidase Ab HIV 1&2 Ab/P24 Ag 4thGn 03/27/19 03/27/19 03/27/19 07:53 11:51 16:26 WBC RBC Hgb Hct MCV MCH MCHC RDW Plt Count MPV Neut % (Auto) Lymph % (Auto) Barton % (Auto) Eos % (Auto) Baso % (Auto) Absolute Neuts (auto) Absolute Lymphs (auto) Absolute Monos (auto) Absolute Eos (auto) Absolute Basos (auto) Absolute Nucleated RBC Nucleated RBC % Sodium Potassium Chloride Carbon Dioxide Anion Gap BUN Creatinine Est GFR ( Amer) Est GFR (Non-Af Amer) BUN/Creatinine Ratio Glucose POC Glucose (mg/dL) 89 113 H 95 Hemoglobin A1c Calcium Magnesium Total Bilirubin AST ALT Alkaline Phosphatase Total Protein Albumin Globulin Albumin/Globulin Ratio Triglycerides Cholesterol LDL Cholesterol HDL Cholesterol TSH Free T4 Thyroxine (T4) Urine Color Urine Appearance Urine pH Ur Specific [place] Urine Protein Urine Ketones Urine Blood Urine Nitrate Urine Bilirubin Urine Urobilinogen Ur Leukocyte Esterase Urine Glucose Salicylates Urine Opiates Screen Acetaminophen Ur Barbiturates Screen Ur Phencyclidine Scrn Ur Amphetamines Screen U Benzodiazepines Scrn Urine Cocaine Screen U Cannabinoids Screen Serum Alcohol Thyroid Peroxidase Ab HIV 1&2 Ab/P24 Ag 4thGn 03/27/19 03/28/19 03/28/19 20:49 07:35 12:01 WBC RBC Hgb Hct MCV MCH MCHC RDW Plt Count MPV Neut % (Auto) Lymph % (Auto) Barton % (Auto) Eos % (Auto) Baso % (Auto) Absolute Neuts (auto) Absolute Lymphs (auto) Absolute Monos (auto) Absolute Eos (auto) Absolute Basos (auto) Absolute Nucleated RBC Nucleated RBC % Sodium Potassium Chloride Carbon Dioxide Anion Gap BUN Creatinine Est GFR ( Amer) Est GFR (Non-Af Amer) BUN/Creatinine Ratio Glucose POC Glucose (mg/dL) 123 H 109 H 52 L Hemoglobin A1c Calcium Magnesium Total Bilirubin AST ALT Alkaline Phosphatase Total Protein Albumin Globulin Albumin/Globulin Ratio Triglycerides Cholesterol LDL Cholesterol HDL Cholesterol TSH Free T4 Thyroxine (T4) Urine Color Urine Appearance Urine pH Ur Specific [place] Urine Protein Urine Ketones Urine Blood Urine Nitrate Urine Bilirubin Urine Urobilinogen Ur Leukocyte Esterase Urine Glucose Salicylates Urine Opiates Screen Acetaminophen Ur Barbiturates Screen Ur Phencyclidine Scrn Ur Amphetamines Screen U Benzodiazepines Scrn Urine Cocaine Screen U Cannabinoids Screen Serum Alcohol Thyroid Peroxidase Ab HIV 1&2 Ab/P24 Ag 4thGn 03/28/19 03/28/19 03/28/19 12:39 13:35 16:42 WBC RBC Hgb Hct MCV MCH MCHC RDW Plt Count MPV Neut % (Auto) Lymph % (Auto) Barton % (Auto) Eos % (Auto) Baso % (Auto) Absolute Neuts (auto) Absolute Lymphs (auto) Absolute Monos (auto) Absolute Eos (auto) Absolute Basos (auto) Absolute Nucleated RBC Nucleated RBC % Sodium Potassium Chloride Carbon Dioxide Anion Gap BUN Creatinine Est GFR ( Amer) Est GFR (Non-Af Amer) BUN/Creatinine Ratio Glucose POC Glucose (mg/dL) 51 L 84 81 Hemoglobin A1c Calcium Magnesium Total Bilirubin AST ALT Alkaline Phosphatase Total Protein Albumin Globulin Albumin/Globulin Ratio Triglycerides Cholesterol LDL Cholesterol HDL Cholesterol TSH Free T4 Thyroxine (T4) Urine Color Urine Appearance Urine pH Ur Specific [place] Urine Protein Urine Ketones Urine Blood Urine Nitrate Urine Bilirubin Urine Urobilinogen Ur Leukocyte Esterase Urine Glucose Salicylates Urine Opiates Screen Acetaminophen Ur Barbiturates Screen Ur Phencyclidine Scrn Ur Amphetamines Screen U Benzodiazepines Scrn Urine Cocaine Screen U Cannabinoids Screen Serum Alcohol Thyroid Peroxidase Ab HIV 1&2 Ab/P24 Ag 4thGn 03/28/19 03/29/19 03/29/19 20:11 07:34 11:34 WBC RBC Hgb Hct MCV MCH MCHC RDW Plt Count MPV Neut % (Auto) Lymph % (Auto) Barton % (Auto) Eos % (Auto) Baso % (Auto) Absolute Neuts (auto) Absolute Lymphs (auto) Absolute Monos (auto) Absolute Eos (auto) Absolute Basos (auto) Absolute Nucleated RBC Nucleated RBC % Sodium Potassium Chloride Carbon Dioxide Anion Gap BUN Creatinine Est GFR ( Amer) Est GFR (Non-Af Amer) BUN/Creatinine Ratio Glucose POC Glucose (mg/dL) 82 115 H 98 Hemoglobin A1c Calcium Magnesium Total Bilirubin AST ALT Alkaline Phosphatase Total Protein Albumin Globulin Albumin/Globulin Ratio Triglycerides Cholesterol LDL Cholesterol HDL Cholesterol TSH Free T4 Thyroxine (T4) Urine Color Urine Appearance Urine pH Ur Specific [place] Urine Protein Urine Ketones Urine Blood Urine Nitrate Urine Bilirubin Urine Urobilinogen Ur Leukocyte Esterase Urine Glucose Salicylates Urine Opiates Screen Acetaminophen Ur Barbiturates Screen Ur Phencyclidine Scrn Ur Amphetamines Screen U Benzodiazepines Scrn Urine Cocaine Screen U Cannabinoids Screen Serum Alcohol Thyroid Peroxidase Ab HIV 1&2 Ab/P24 Ag 4thGn 03/29/19 03/29/19 03/30/19 16:25 20:31 07:21 WBC RBC Hgb Hct MCV MCH MCHC RDW Plt Count MPV Neut % (Auto) Lymph % (Auto) [place] % (Auto) Eos % (Auto) Baso % (Auto) Absolute Neuts (auto) Absolute Lymphs (auto) Absolute Monos (auto) Absolute Eos (auto) Absolute Basos (auto) Absolute Nucleated RBC Nucleated RBC % Sodium Potassium Chloride Carbon Dioxide Anion Gap BUN Creatinine Est GFR ( Amer) Est GFR (Non-Af Amer) BUN/Creatinine Ratio Glucose POC Glucose (mg/dL) 107 H 121 H 120 H Hemoglobin A1c Calcium Magnesium Total Bilirubin AST ALT Alkaline Phosphatase Total Protein Albumin Globulin Albumin/Globulin Ratio Triglycerides Cholesterol LDL Cholesterol HDL Cholesterol TSH Free T4 Thyroxine (T4) Urine Color Urine Appearance Urine pH Ur Specific [place] Urine Protein Urine Ketones Urine Blood Urine Nitrate Urine Bilirubin Urine Urobilinogen Ur Leukocyte Esterase Urine Glucose Salicylates Urine Opiates Screen Acetaminophen Ur Barbiturates Screen Ur Phencyclidine Scrn Ur Amphetamines Screen U Benzodiazepines Scrn Urine Cocaine Screen U Cannabinoids Screen Serum Alcohol Thyroid Peroxidase Ab HIV 1&2 Ab/P24 Ag 4thGn 03/30/19 03/30/19 03/30/19 11:12 16:26 20:11 WBC RBC Hgb Hct MCV MCH MCHC RDW Plt Count MPV Neut % (Auto) Lymph % (Auto) Barton % (Auto) Eos % (Auto) Baso % (Auto) Absolute Neuts (auto) Absolute Lymphs (auto) Absolute Monos (auto) Absolute Eos (auto) Absolute Basos (auto) Absolute Nucleated RBC Nucleated RBC % Sodium Potassium Chloride Carbon Dioxide Anion Gap BUN Creatinine Est GFR ( Amer) Est GFR (Non-Af Amer) BUN/Creatinine Ratio Glucose POC Glucose (mg/dL) 87 98 100 Hemoglobin A1c Calcium Magnesium Total Bilirubin AST ALT Alkaline Phosphatase Total Protein Albumin Globulin Albumin/Globulin Ratio Triglycerides Cholesterol LDL Cholesterol HDL Cholesterol TSH Free T4 Thyroxine (T4) Urine Color Urine Appearance Urine pH Ur Specific [place] Urine Protein Urine Ketones Urine Blood Urine Nitrate Urine Bilirubin Urine Urobilinogen Ur Leukocyte Esterase Urine Glucose Salicylates Urine Opiates Screen Acetaminophen Ur Barbiturates Screen Ur Phencyclidine Scrn Ur Amphetamines Screen U Benzodiazepines Scrn Urine Cocaine Screen U Cannabinoids Screen Serum Alcohol Thyroid Peroxidase Ab HIV 1&2 Ab/P24 Ag 4thGn 03/31/19 03/31/19 03/31/19 07:37 11:42 16:14 WBC RBC Hgb Hct MCV MCH MCHC RDW Plt Count MPV Neut % (Auto) Lymph % (Auto) [place] % (Auto) Eos % (Auto) Baso % (Auto) Absolute Neuts (auto) Absolute Lymphs (auto) Absolute Monos (auto) Absolute Eos (auto) Absolute Basos (auto) Absolute Nucleated RBC Nucleated RBC % Sodium Potassium Chloride Carbon Dioxide Anion Gap BUN Creatinine Est GFR ( Amer) Est GFR (Non-Af Amer) BUN/Creatinine Ratio Glucose POC Glucose (mg/dL) 112 H 97 109 H Hemoglobin A1c Calcium Magnesium Total Bilirubin AST ALT Alkaline Phosphatase Total Protein Albumin Globulin Albumin/Globulin Ratio Triglycerides Cholesterol LDL Cholesterol HDL Cholesterol TSH Free T4 Thyroxine (T4) Urine Color Urine Appearance Urine pH Ur Specific [place] Urine Protein Urine Ketones Urine Blood Urine Nitrate Urine Bilirubin Urine Urobilinogen Ur Leukocyte Esterase Urine Glucose Salicylates Urine Opiates Screen Acetaminophen Ur Barbiturates Screen Ur Phencyclidine Scrn Ur Amphetamines Screen U Benzodiazepines Scrn Urine Cocaine Screen U Cannabinoids Screen Serum Alcohol Thyroid Peroxidase Ab HIV 1&2 Ab/P24 Ag 4thGn 03/31/19 03/31/19 04/01/19 18:02 20:46 07:44 WBC RBC Hgb Hct MCV MCH MCHC RDW Plt Count MPV Neut % (Auto) Lymph % (Auto) Barton % (Auto) Eos % (Auto) Baso % (Auto) Absolute Neuts (auto) Absolute Lymphs (auto) Absolute Monos (auto) Absolute Eos (auto) Absolute Basos (auto) Absolute Nucleated RBC Nucleated RBC % Sodium Potassium Chloride Carbon Dioxide Anion Gap BUN Creatinine Est GFR ( Amer) Est GFR (Non-Af Amer) BUN/Creatinine Ratio Glucose POC Glucose (mg/dL) 121 H 119 H Hemoglobin A1c Calcium Magnesium Total Bilirubin AST ALT Alkaline Phosphatase Total Protein Albumin Globulin Albumin/Globulin Ratio Triglycerides Cholesterol LDL Cholesterol HDL Cholesterol TSH Free T4 1.05 Thyroxine (T4) Urine Color Urine Appearance Urine pH Ur Specific [place] Urine Protein Urine Ketones Urine Blood Urine Nitrate Urine Bilirubin Urine Urobilinogen Ur Leukocyte Esterase Urine Glucose Salicylates Urine Opiates Screen Acetaminophen Ur Barbiturates Screen Ur Phencyclidine Scrn Ur Amphetamines Screen U Benzodiazepines Scrn Urine Cocaine Screen U Cannabinoids Screen Serum Alcohol Thyroid Peroxidase Ab 0.30 HIV 1&2 Ab/P24 Ag 4thGn 04/01/19 04/01/19 04/01/19 11:00 11:00 11:00 WBC 6.5 RBC 5.20 Hgb 15.7 Hct 45 MCV 86 MCH 30 MCHC 35 RDW 13 Plt Count 196 MPV 7.3 L Neut % (Auto) Lymph % (Auto) [place] % (Auto) Eos % (Auto) Baso % (Auto) Absolute Neuts (auto) Absolute Lymphs (auto) Absolute Monos (auto) Absolute Eos (auto) Absolute Basos (auto) Absolute Nucleated RBC Nucleated RBC % Sodium 137 Potassium 4.3 Chloride 104 Carbon Dioxide 24 Anion Gap 9 BUN 16 Creatinine 0.65 L Est GFR ( Amer) 175.7 Est GFR (Non-Af Amer) 145.2 BUN/Creatinine Ratio 24.6 H Glucose 114 H POC Glucose (mg/dL) Hemoglobin A1c Calcium 9.9 Magnesium 2.0 Total Bilirubin 0.80 AST 23 ALT 22 Alkaline Phosphatase 75 Total Protein 7.7 Albumin 4.7 Globulin 3.0 Albumin/Globulin Ratio 1.6 Triglycerides Cholesterol LDL Cholesterol HDL Cholesterol TSH Free T4 Thyroxine (T4) Urine Color Urine Appearance Urine pH Ur Specific [place] Urine Protein Urine Ketones Urine Blood Urine Nitrate Urine Bilirubin Urine Urobilinogen Ur Leukocyte Esterase Urine Glucose Salicylates Urine Opiates Screen Acetaminophen Ur Barbiturates Screen Ur Phencyclidine Scrn Ur Amphetamines Screen U Benzodiazepines Scrn Urine Cocaine Screen U Cannabinoids Screen Serum Alcohol Thyroid Peroxidase Ab HIV 1&2 Ab/P24 Ag 4thGn Negative 04/01/19 04/02/19 04/03/19 14:13 07:43 07:38 WBC RBC Hgb Hct MCV MCH MCHC RDW Plt Count MPV Neut % (Auto) Lymph % (Auto) [place] % (Auto) Eos % (Auto) Baso % (Auto) Absolute Neuts (auto) Absolute Lymphs (auto) Absolute Monos (auto) Absolute Eos (auto) Absolute Basos (auto) Absolute Nucleated RBC Nucleated RBC % Sodium Potassium Chloride Carbon Dioxide Anion Gap BUN Creatinine Est GFR ( Amer) Est GFR (Non-Af Amer) BUN/Creatinine Ratio Glucose POC Glucose (mg/dL) 102 H 172 H 112 H Hemoglobin A1c Calcium Magnesium Total Bilirubin AST ALT Alkaline Phosphatase Total Protein Albumin Globulin Albumin/Globulin Ratio Triglycerides Cholesterol LDL Cholesterol HDL Cholesterol TSH Free T4 Thyroxine (T4) Urine Color Urine Appearance Urine pH Ur Specific [place] Urine Protein Urine Ketones Urine Blood Urine Nitrate Urine Bilirubin Urine Urobilinogen Ur Leukocyte Esterase Urine Glucose Salicylates Urine Opiates Screen Acetaminophen Ur Barbiturates Screen Ur Phencyclidine Scrn Ur Amphetamines Screen U Benzodiazepines Scrn Urine Cocaine Screen U Cannabinoids Screen Serum Alcohol Thyroid Peroxidase Ab HIV 1&2 Ab/P24 Ag 4thGn Merits Inpatient Hospitalization: No Clear for Discharge: Adequate Clinical Respons Discharge Planning - Discharge Planning Discharge Plan: Outpatient Follow Up Outpatient Program: [facility] Recommendations for Continuing Care: Medication Management Medications: Current Medications Acamprosate (Campral (Nf)) 666 mg PO TID [facility] Last Admin: 04/03/19 08:18 Dose: 666 mg Al Hydrox/Mg Hydrox/Simethicone (Maalox Plus*) 30 ml PO Q4H PRN PRN Reason: INDIGESTION Last Admin: 04/02/19 15:44 Dose: 30 ml Benzocaine (Orajel 10%*) 1 applic TOPICAL BID PRN PRN Reason: PAIN Clonidine HCl (Catapres Tab*) 0.1 mg PO TID [facility] Last Admin: 04/03/19 08:19 Dose: 0.1 mg Dextrose (D50w Syringe 50 Ml*) 12.5 gm IV PUSH .FOR FS < 60 - SS PRN PRN Reason: FS < 60 Duloxetine HCl (Cymbalta Cap*) 20 mg PO BID [facility] Last Admin: 04/03/19 08:19 Dose: 20 mg Famotidine (Pepcid Tab*) 20 mg PO BID [facility] Last Admin: 04/03/19 08:19 Dose: 20 mg Multivitamins/Minerals (Theragran/Minerals Tab*) 1 tab PO DAILY [facility] Last Admin: 04/03/19 08:18 Dose: 1 tab Naproxen (Naprosyn Tab*) 250 mg PO BID PRN PRN Reason: PAIN Last Admin: 04/03/19 06:16 Dose: 250 mg Nicotine Polacrilex (Nicotine Gum*) 2 mg PO Q2H PRN PRN Reason: CRAVING Quetiapine Fumarate (Seroquel Xr Tab*) 150 mg PO 2100 [facility] Last Admin: 04/02/19 20:21 Dose: 150 mg Discharge Planning: Prescriptions provided for discharge [x] Yes [] No Follow up care details as per social work arrangements. Patient response to discharge plan: [x] eager for discharge [] agreeable with discharge plan [] ambivalent about discharge [] disagrees with discharge today
[2019-04-03 13:23] VITALS: BP 109/68
--- NOTE | 2019-04-03 16:15 | PN ---
BSU: Group Therapy Note - Service Type Service Type: [id number] Group Psychotherapy - Group Participation Patient Participating in Group: Yes Level of Group Participation: Attentive, Spontaneously Participate Relatedness to Group: Well Related - Phil participated actively in group and offered excellent contributions. He did leave the group early, but was a good group member.
== END 2019-04-03 17:45 | disposition home or self-care (01) | DRG 750 ==
LOC: ED 19:09 → BSU 21:04
PROVIDERS: ADMIT Psychiatry & Neurology Psychiatry; ATTEND Psychiatry & Neurology Psychiatry
PROC: 0DB98ZX Excision of Duodenum, Via Natural or Artificial Opening Endoscopic, Diagnostic (ICD-10-PCS; principal; 2019-03-31)
PROC: 0DB68ZX Excision of Stomach, Via Natural or Artificial Opening Endoscopic, Diagnostic (ICD-10-PCS; 2019-03-31)
PROC: GZHZZZZ Group Psychotherapy (ICD-10-PCS; 2019-04-02)
DX: F25.9 Schizoaffective disorder, unspecified (principal); Z68.41 Body mass index [BMI] 40.0-44.9, adult; R45.851 Suicidal ideations; R13.10 Dysphagia, unspecified; K29.70 Gastritis, unspecified, without bleeding; R63.4 Abnormal weight loss; E11.649 Type 2 diabetes mellitus with hypoglycemia without coma; Z83.3 Family history of diabetes mellitus; Z72.0 Tobacco use; E03.9 Hypothyroidism, unspecified; E66.01 Morbid (severe) obesity due to excess calories; F10.20 Alcohol dependence, uncomplicated; Z88.0 Allergy status to penicillin; Z88.1 Allergy status to other antibiotic agents; Z88.6 Allergy status to analgesic agent; Z88.5 Allergy status to narcotic agent; F14.90 Cocaine use, unspecified, uncomplicated
CPT/HCPCS: 36415; 74246; 80053; 80061; 80307; 80320; 80329; 81003; 83036; 83735; 84436; 84439; 84443; 85025; 85027; 86376; 87077; 87389; 88305; 90853; 99156; 99157; 99222; 99231; 99232; 99233; 99238; 99285; A9270-GY; G0480; J2250; J3010

== ENCOUNTER 2024-09-15 15:31 | Inpatient (IN) ==
[2024-09-15 16:21] LABS: ABS Basophils 0.1 10^3/uL (0.0-0.1); ABS Eosinophils 0.1 10^3/uL (0.0-0.5); ABS Lymphocytes 1.8 10^3/uL (1.0-4.8); ABS Monocytes 0.3 10^3/uL (0.0-1.1); ABS Neutrophils 7.1 10^3/uL (1.5-7.6); Hematocrit 44.9 % (38-53); Hemoglobin 15.7 g/dL (13.2-16.3); Lymphocyte % 19.5 %; Mean Corpuscular Hemoglobin 30.3 pg (27-33); Mean Corpuscular Hgb Conc 35.1 g/dL (31-36); Mean Corpuscular Volume 86.3 fL (80-97); Platelet Count 181 10^3/uL (150-450); Red Cell Distribution Width 13.9 % (12-17); White Blood Count 9.4 10^3/uL (3.6-10.2)
[2024-09-15 16:35] LABS: Urine Appearance Clear; Urine Bilirubin Negative (Negative); Urine Blood Negative (Negative); Urine Color Light-Yellow; Urine Glucose 4+ (>=1000 mg/dL) (Negative); Urine Ketones 1+ (Negative); Urine Nitrite Negative (Negative); Urine Protein Negative (Negative); Urine Urobilinogen Negative (Negative); Urine pH 6.5 (5.0-8.0)
[2024-09-15 16:39] LABS: Urine Benzodiazepine Screen None Detected (None Detect); Urine Cannabinoids Screen None Detected (None Detect); Urine Opiates Screen None Detected (None Detect)
[2024-09-15 16:50] LABS: ALT 24 U/L (7-52); AST 17 U/L (13-39); Acetaminophen < 15 mcg/mL; Albumin 4.4 g/dL (3.5-5.7); Albumin/Globulin Ratio 1.6 (1-3); Alcohol, S < 13 mg/dL (<13); Alkaline Phosphatase 91 U/L (35-149); Anion Gap 11 mmol/L (2-16); Blood Urea Nitrogen 17 mg/dL (6-24); CO2 Carbon Dioxide 25 mmol/L (22-32); Calcium 8.9 mg/dL (8.6-10.3); Chloride 103 mmol/L (101-111); Creatinine, Serum 0.75 mg/dL (0.67-1.17); Globulin 2.7 g/dL (2-4); Glucose 131 mg/dL (70-100); Potassium 4.1 mmol/L (3.5-5.0); Salicylate < 2.50 mg/dL (<30); Sodium 139 mmol/L (135-145); Total Bilirubin 0.6 mg/dL (0.2-1.0); Total Protein 7.1 g/dL (6.4-8.9); eGFR CKD-EPI 120.7 (>60)
[2024-09-15 17:05] LABS: TSH Ultra Thyroid Stim Horm 1.48 mcIU/mL (0.34-5.60)
[2024-09-15] MEDS ORDERED: Dextrose 50% Syringe 50 ml 25 GM/50 ML SYRINGE IV PUSH PRN (21:25)
[2024-09-15] MEDS: Insulin GLARGINE 100 un/ml 10 ml VIAL SUBCUT SCH (21:44)
[2024-09-16] MEDS: Nicotine GUM 4MG FRUIT FLAVOR PO PRN (13:06)
[2024-09-16] MEDS ORDERED: INSULIN GLARGINE YFGN SUBCUT SCH (21:00)
[2024-09-17 07:58] LABS: HDL Cholesterol 37.2 mg/dL
[2024-09-19] MEDS: OLANZapine 5 mg TAB *ODT PO SCH (11:20)
[2024-09-19] MEDS: OLANZapine 5 mg TAB *ODT PO PRN (19:26)
[2024-09-20] MEDS: Iodixanol 320 (CONTRAST) 100 ML SDV IV ONE (16:55)
[2024-09-22 09:43] VITALS: BP 131/84
[2024-09-22] MEDS: OLANZapine 5 mg TAB *ODT PO PRN (12:23)
[2024-09-22] MEDS: OLANZapine 5 mg TAB *ODT ONE (12:38)
== END 2024-09-22 18:21 | disposition home or self-care (01) | DRG 750 ==
LOC: ED 15:31 → EDHOLD 18:15 → BSU 18:22
PROVIDERS: ADMIT Psychiatry & Neurology Psychiatry; ATTEND Student in an Organized Health Care Education/Training Program